=== PATIENT | female | born 1940 | race Two or more races ===

== ENCOUNTER → 2021-11-29 | Outpatient (CLI) | payer OTHER ==
[2021-11-29 09:36] LABS: Basophils # (auto) 0 10 ^3/uL (0-0.2); Basophils % (auto) 0.5 % (0.0-2.0); Eosinophils # (auto) 0.2 10 ^3/uL (0-0.8); Eosinophils % (auto) 2.2 % (0.0-7.0); Hematocrit 38.4 % (36.0-46.0); Hemoglobin 12.4 g/dL (12.2-16.2); Lymphocytes # (auto) 2.7 10 ^3/uL (0.4-5.4); Lymphocytes % (auto) 33.8 % (10.0-50.0); Mean Corpuscular Hemoglobin 29.3 pg (28.0-32.0); Mean Corpuscular Hgb Conc. 32.3 g/dL (32.0-36.0); Mean Corpuscular Volume 90.5 fL (80.0-100.0); Monocytes # (auto) 0.9 10 ^3/uL (0-1.3); Monocytes % (auto) 11.5 % (0.0-12.0); Neutrophils # (auto) 4.1 10 ^3/uL (1.6-8.6); Red Blood Cells 4.25 10^6/uL (4.0-5.20); Red Cell Distribution Width 13.5 % (11.8-14.3)
[2021-11-29 10:25] LABS: Potassium 4.7 mmol/L (3.5-5.1)
[2021-11-29 10:33] LABS: Albumin 3.7 g/dL (3.4-5.0); BUN/Creatinine Ratio 17.1; Bilirubin, Total 0.3 mg/dL (0.2-1.0); Calcium 9.2 mg/dL (8.5-10.1); Total Protein 7.2 g/dL (6.4-8.2)
== END | disposition home or self-care (01) ==
LOC: LAB 09:19
PROVIDERS: ATTEND Internal Medicine
DX: Z12.11 Encounter for screening for malignant neoplasm of colon (principal); E78.5 Hyperlipidemia, unspecified; I10 Essential (primary) hypertension; E55.9 Vitamin D deficiency, unspecified
CPT/HCPCS: 36415; 80053; 80061; 82306; 84439; 84443; 85025

== ENCOUNTER → 2022-02-24 | Outpatient (CLI) | payer OTHER ==
[2022-02-24 15:28] LABS: Albumin 3.7 g/dL (3.4-5.0); BUN/Creatinine Ratio 17.7; Bilirubin, Total 0.3 mg/dL (0.2-1.0); Magnesium 2.5 mg/dL (1.6-2.6); Phosphorus 3.5 mg/dL (2.5-4.90); Potassium 4.3 mmol/L (3.5-5.1); Total Protein 7.3 g/dL (6.4-8.2); Uric Acid 6.3 mg/dL (2.6-6.0)
[2022-02-25 16:21] LABS: Free T3 3.07 pg/mL (2.3-4.2); Free T4 (Free Thyroxine) 0.89 ng/dL (0.89-1.76)
== END | disposition home or self-care (01) ==
LOC: LAB 13:59
PROVIDERS: ATTEND Internal Medicine
DX: E11.22 Type 2 diabetes mellitus with diabetic chronic kidney disease (principal); N18.32 Chronic kidney disease, stage 3b; E21.3 Hyperparathyroidism, unspecified; E03.9 Hypothyroidism, unspecified; D63.1 Anemia in chronic kidney disease; M10.9 Gout, unspecified; E56.9 Vitamin deficiency, unspecified; R80.9 Proteinuria, unspecified; E61.2 Magnesium deficiency; E43 Unspecified severe protein-calorie malnutrition
CPT/HCPCS: 36415; 80053; 82306; 83735; 83970; 84100; 84439; 84443; 84481; 84550

== ENCOUNTER → 2022-06-09 | Outpatient (CLI) | payer OTHER ==
[2022-06-09 14:23] LABS: Basophils # (auto) 0 10 ^3/uL (0-0.2); Basophils % (auto) 0.6 % (0.0-2.0); Eosinophils # (auto) 0.2 10 ^3/uL (0-0.8); Eosinophils % (auto) 3.1 % (0.0-7.0); Hematocrit 37.6 % (36.0-46.0); Hemoglobin 12.5 g/dL (12.2-16.2); Lymphocytes # (auto) 2.2 10 ^3/uL (0.4-5.4); Mean Corpuscular Hemoglobin 29.6 pg (28.0-32.0); Mean Corpuscular Hgb Conc. 33.4 g/dL (32.0-36.0); Mean Corpuscular Volume 88.8 fL (80.0-100.0); Monocytes # (auto) 0.6 10 ^3/uL (0-1.3); Monocytes % (auto) 9.9 % (0.0-12.0); Neutrophils # (auto) 2.9 10 ^3/uL (1.6-8.6); Neutrophils % (auto) 49.4 % (37.0-80.0); Nucleated Red Blood Cells % 0.1 %; Red Blood Cells 4.23 10^6/uL (4.0-5.20); Red Cell Distribution Width 13.6 % (11.8-14.3); White Blood Cell 5.9 10^3/uL (4.4-10.8)
[2022-06-09 14:43] LABS: Albumin 3.9 g/dL (3.4-5.0); Calcium 8.9 mg/dL (8.5-10.1); Magnesium 2.3 mg/dL (1.6-2.6); Potassium 4.4 mmol/L (3.5-5.1); Uric Acid 6.4 mg/dL (2.6-6.0)
[2022-06-09 14:48] LABS: BUN/Creatinine Ratio 12.3; Bilirubin, Total 0.3 mg/dL (0.2-1.0); Phosphorus 3.9 mg/dL (2.5-4.90); Total Protein 7.5 g/dL (6.4-8.2)
[2022-06-09 15:53] LABS: Protein, Urine 25.3 mg/dL (0.0-11.9)
== END | disposition home or self-care (01) ==
LOC: LAB 14:00
PROVIDERS: ATTEND Internal Medicine Nephrology
DX: N18.31 Chronic kidney disease, stage 3a (principal); E61.2 Magnesium deficiency; E21.3 Hyperparathyroidism, unspecified; R80.9 Proteinuria, unspecified; D63.1 Anemia in chronic kidney disease
CPT/HCPCS: 36415; 80053; 82570; 83735; 83970; 84100; 84156; 84550; 85025

== ENCOUNTER → 2022-07-14 | Outpatient (CLI) | payer OTHER | END | disposition home or self-care (01) | LOC: XYW 13:45 | PROVIDERS: ATTEND Internal Medicine | DX: I08.0 Rheumatic disorders of both mitral and aortic valves (principal); I25.810 Atherosclerosis of coronary artery bypass graft(s) without angina pectoris | CPT/HCPCS: 93306 ==

== ENCOUNTER → 2022-07-22 | Outpatient (CLI) | payer OTHER ==
[~2022-07-22] VITALS: Ht 147.3 cm; Wt 48.1 kg
[~2022-07-22] MED LIST: ADENOSINE 40 MG in GIVE UN-DILUTED 0 ML IV STA
[2022-07-22 10:49] VITALS: BP 144/100
== END | disposition home or self-care (01) ==
LOC: XYW 07:55
PROVIDERS: ATTEND Internal Medicine
DX: I25.810 Atherosclerosis of coronary artery bypass graft(s) without angina pectoris (principal); R00.2 Palpitations; I73.9 Peripheral vascular disease, unspecified; I35.0 Nonrheumatic aortic (valve) stenosis; I10 Essential (primary) hypertension; E78.5 Hyperlipidemia, unspecified; R09.89 Other specified symptoms and signs involving the circulatory and respiratory systems; Z95.2 Presence of prosthetic heart valve
CPT/HCPCS: 78452; 93017; A9500; J0153

== ENCOUNTER → 2022-07-28 | Outpatient (CLI) | payer OTHER | END | disposition home or self-care (01) | LOC: XYW 08:07 | PROVIDERS: ATTEND Internal Medicine | DX: I65.23 Occlusion and stenosis of bilateral carotid arteries (principal); I73.9 Peripheral vascular disease, unspecified | CPT/HCPCS: 93886; 93925 ==

== ENCOUNTER → 2022-09-01 | Outpatient (CLI) | payer OTHER ==
[2022-09-01 13:44] LABS: Albumin 3.5 g/dL (3.4-5.0); Calcium 8.7 mg/dL (8.5-10.1); Magnesium 2.8 mg/dL (1.6-2.6); Potassium 4.5 mmol/L (3.5-5.1); Uric Acid 6.1 mg/dL (2.6-6.0)
[2022-09-01 13:47] LABS: BUN/Creatinine Ratio 18.9 (10.0-20.0); Bilirubin, Total 0.3 mg/dL (0.2-1.0); Total Protein 7.8 g/dL (6.4-8.2)
[2022-09-01 14:11] LABS: INR 0.94 (0.9-1.15); Partial Thromboplastin Time 25.9 sec (24.6-33.4)
[2022-09-01 14:27] LABS: Urine Bacteria FEW /hpf (None Seen); Urine Blood Negative /uL (Negative); Urine Hyaline Cast MANY /lpf (0 - 2); Urine Specific Gravity 1.012 (1.001-1.035); Urine WBC 3 /hpf (0 - 5)
== END | disposition home or self-care (01) ==
LOC: LAB 13:05
PROVIDERS: ATTEND Internal Medicine Nephrology
DX: N18.30 Chronic kidney disease, stage 3 unspecified (principal); E11.21 Type 2 diabetes mellitus with diabetic nephropathy; D63.1 Anemia in chronic kidney disease; N39.0 Urinary tract infection, site not specified; R80.9 Proteinuria, unspecified; E21.3 Hyperparathyroidism, unspecified; M10.9 Gout, unspecified; E55.9 Vitamin D deficiency, unspecified
CPT/HCPCS: 36415; 80053; 81001; 82607; 83036; 83735; 84550; 85610; 85730

== ENCOUNTER → 2022-12-01 | Outpatient (CLI) | payer OTHER ==
[2022-12-01 11:29] LABS: Basophils # (auto) 0 10 ^3/uL (0-0.2); Basophils % (auto) 0.8 % (0.0-2.0); Eosinophils # (auto) 0.2 10 ^3/uL (0-0.8); Eosinophils % (auto) 3.7 % (0.0-7.0); Hemoglobin 12.2 g/dL (12.2-16.2); Lymphocytes # (auto) 2.6 10 ^3/uL (0.4-5.4); Lymphocytes % (auto) 42.7 % (10.0-50.0); Mean Corpuscular Hemoglobin 30.1 pg (28.0-32.0); Mean Corpuscular Volume 91.3 fL (80.0-100.0); Monocytes # (auto) 0.6 10 ^3/uL (0-1.3); Monocytes % (auto) 10.7 % (0.0-12.0); Neutrophils # (auto) 2.5 10 ^3/uL (1.6-8.6); Neutrophils % (auto) 42.1 % (37.0-80.0); Nucleated Red Blood Cells % 0.1 %; Red Blood Cells 4.06 10^6/uL (4.0-5.20); Red Cell Distribution Width 14.9 % (11.8-14.3)
[2022-12-01 13:44] LABS: Potassium 4.5 mmol/L (3.5-5.1)
[2022-12-01 13:51] LABS: Albumin 3.9 g/dL (3.4-5.0); BUN/Creatinine Ratio 22.1 (10.0-20.0); Bilirubin, Total 0.2 mg/dL (0.2-1.0); Calcium 8.9 mg/dL (8.5-10.1); Magnesium 2.6 mg/dL (1.6-2.6); Total Protein 7.6 g/dL (6.4-8.2)
[2022-12-01 14:35] LABS: Protein, Urine 11.2 mg/dL (0.0-11.9); Urine Protein/Creatinine Ratio 0.21
[2022-12-01 16:11] LABS: Uric Acid 6.6 mg/dL (2.6-6.0)
== END | disposition home or self-care (01) ==
LOC: LAB 11:08
PROVIDERS: ATTEND Internal Medicine Nephrology
DX: N18.31 Chronic kidney disease, stage 3a (principal); E61.2 Magnesium deficiency; E21.3 Hyperparathyroidism, unspecified; R80.9 Proteinuria, unspecified; R10.9 Unspecified abdominal pain
CPT/HCPCS: 36415; 80053; 82570; 83735; 83970; 84156; 84550; 85025

== ENCOUNTER 2022-12-31 07:19 | Inpatient (IN) | payer OTHER ==
[2022-12-30 13:52] LABS: Basophils # (auto) 0 10 ^3/uL (0-0.2); Basophils % (auto) 0.7 % (0.0-2.0); Eosinophils # (auto) 0.3 10 ^3/uL (0-0.8); Eosinophils % (auto) 4.9 % (0.0-7.0); Hematocrit 34.9 % (36.0-46.0); Hemoglobin 11.6 g/dL (12.2-16.2); Lymphocytes # (auto) 2.4 10 ^3/uL (0.4-5.4); Lymphocytes % (auto) 43.9 % (10.0-50.0); Mean Corpuscular Hemoglobin 30.6 pg (28.0-32.0); Mean Corpuscular Hgb Conc. 33.1 g/dL (32.0-36.0); Mean Corpuscular Volume 92.2 fL (80.0-100.0); Monocytes # (auto) 0.7 10 ^3/uL (0-1.3); Monocytes % (auto) 11.9 % (0.0-12.0); Neutrophils # (auto) 2.1 10 ^3/uL (1.6-8.6); Neutrophils % (auto) 38.6 % (37.0-80.0); Nucleated Red Blood Cells % 0.1 %; Red Blood Cells 3.78 10^6/uL (4.0-5.20); Red Cell Distribution Width 13.9 % (11.8-14.3); White Blood Cell 5.5 10^3/uL (4.4-10.8)
[2022-12-30 13:55] LABS: Partial Thromboplastin Time 25.8 SEC (24.5-34.5); Prothrombin Time 10.5 sec (9.3-11.8)
[2022-12-30 14:32] LABS: Alanine Aminotransferase 47 U/L (7-40); Albumin 4.3 g/dL (3.2-4.8); Alkaline Phosphatase 49 U/L (46-116); Anion Gap 3.5 (5-15); Aspartate Aminotransferase 32 U/L (13-40); BUN/Creatinine Ratio 16.7 (10.0-20.0); Blood Urea Nitrogen 21 mg/dL (9-23); Calcium 9.2 mg/dL (8.5-10.1); Carbon Dioxide 28.5 mmol/L (20-30); Chloride 107 mmol/L (98-107); Glucose 82 mg/dL (74-106); Potassium 4.8 mmol/L (3.5-5.1); Sodium 139 mmol/L (136-145)
[2022-12-30 14:33] LABS: Bilirubin, Total 0.3 mg/dL (0.2-1.0); Total Protein 7.1 g/dL (5.7-8.2)
[~2022-12-31] VITALS: Ht 154.9 cm; Wt 50.4 kg
[2022-12-31] VITALS (10 sets, daily range): BP systolic 111–158; BP diastolic 50–88; PULSE 64–84; RESP 10–18; TEMP 98–98.7; O2SAT 96–99
[~2022-12-31 07:19] MED LIST changes: -ADENOSINE 40 MG in GIVE UN-DILUTED 0 ML IV STA; +ASPI-543 PO; +CHOL20007 PO; +CLOP75TA70 PO; +LISI10TA34 PO; +MAGN250T22 PO; +MECL1TAB32 PO; +OXYB5TAB10 PO; +SIMV80TA17 PO
[2022-12-31] MEDS ORDERED: ANGIOMAX 250 MG VIAL IV ONE ×2 (09:58→11:59)
[2022-12-31] MEDS ORDERED: GLYCOPYRROLATE 0.2 MG/ML 1ML VIAL ONE (09:58)
[2022-12-31] MEDS ORDERED: SODIUM CHL 0.9% 50 ML ONE ×2 (09:59→11:59)
[2022-12-31] MEDS ORDERED: IODIXANOL 320MG/ML 100ML BTL IV ONE ×3 (09:59→11:43)
[2022-12-31] MEDS ORDERED: DOPamine 1600MCG/ML D5W 0 ML IV ONE (10:00)
[2022-12-31] MEDS ORDERED: EPINEPHrine HCL 1 MG/10 ML SYRG ONE (10:00)
[2022-12-31] MEDS ORDERED: ATROPINE SULF 1 MG/10ml SYR ONE (10:00)
[2022-12-31] MEDS ORDERED: LIDOCAINE 2%HCL (LOCAL ANESTH.) INJ 20ML MDV ONE (10:23)
[2022-12-31] MEDS ORDERED: hydrALAZINE HCL 20 MG/ML VL ONE (10:59)
[2022-12-31] MEDS ORDERED: ACETAMINOPHEN 325 MG TAB PO PRN (15:45)
[2022-12-31] MEDS ORDERED: ATORVASTATIN 20 MG TAB PO SCH (22:00)
[2023-01-01 05:00] VITALS: BP 135/55; PULSE 64; RESP 16; TEMP 99.1; O2SAT 99
[2023-01-01 08:00] VITALS: PULSE 64; RESP 16
[2023-01-01 08:42] LABS: Basophils # (auto) 0 10 ^3/uL (0-0.2); Basophils % (auto) 0.5 % (0.0-2.0); Eosinophils # (auto) 0.2 10 ^3/uL (0-0.8); Eosinophils % (auto) 2.8 % (0.0-7.0); Hematocrit 36.1 % (36.0-46.0); Hemoglobin 11.9 g/dL (12.2-16.2); Lymphocytes # (auto) 2.3 10 ^3/uL (0.4-5.4); Lymphocytes % (auto) 28.1 % (10.0-50.0); Mean Corpuscular Hgb Conc. 32.9 g/dL (32.0-36.0); Mean Corpuscular Volume 94.1 fL (80.0-100.0); Monocytes # (auto) 0.8 10 ^3/uL (0-1.3); Monocytes % (auto) 10.3 % (0.0-12.0); Neutrophils # (auto) 4.7 10 ^3/uL (1.6-8.6); Neutrophils % (auto) 58.3 % (37.0-80.0); Red Blood Cells 3.84 10^6/uL (4.0-5.20); Red Cell Distribution Width 13.8 % (11.8-14.3); White Blood Cell 8.1 10^3/uL (4.4-10.8)
[2023-01-01 08:59] LABS: Anion Gap 6 (5-15); Calcium 9.3 mg/dL (8.5-10.1); Carbon Dioxide 25 mmol/L (20-30); Chloride 107 mmol/L (98-107); Potassium 4.5 mmol/L (3.5-5.1); Sodium 138 mmol/L (136-145)
[2023-01-01 09:00] VITALS: BP 122/69; PULSE 71; RESP 19; TEMP 98.3; O2SAT 99
[2023-01-01 09:05] LABS: Glucose 105 mg/dL (74-106)
[2023-01-01 09:06] LABS: BUN/Creatinine Ratio 12.6 (10.0-20.0); Blood Urea Nitrogen 15 mg/dL (9-23)
[2023-01-01] MEDS ORDERED: ASPirin 81 mg TAB PO SCH (10:00)
[2023-01-01] MEDS ORDERED: CLOPIDOGREL BISULFATE 75 MG TAB PO SCH (10:00)
[2023-01-01] MEDS ORDERED: MAGNESIUM OXIDE 400 MG TAB PO SCH (10:00)
[2023-01-01 13:00] VITALS: BP 139/69; PULSE 78; RESP 19; TEMP 98.4; O2SAT 99
[2023-01-01 15:03] VITALS: TEMP 37.3
== END 2023-01-01 17:58 | disposition home or self-care (01) | DRG 36 ==
LOC: CATH 07:19 → TELE 12:01 → TELE-WESTW 15:40
PROVIDERS: ADMIT Internal Medicine; ATTEND Internal Medicine
PROC: 037J3DZ Dilation of Left Common Carotid Artery with Intraluminal Device, Percutaneous Approach (ICD-10-PCS; principal; 2022-12-31)
PROC: 037J3DZ Dilation of Left Common Carotid Artery with Intraluminal Device, Percutaneous Approach (ICD-10-PCS; 2022-12-31)
PROC: B315YZZ Fluoroscopy of Bilateral Common Carotid Arteries using Other Contrast (ICD-10-PCS; 2022-12-31)
DX: I65.22 Occlusion and stenosis of left carotid artery (principal); E78.5 Hyperlipidemia, unspecified; I10 Essential (primary) hypertension; I25.10 Atherosclerotic heart disease of native coronary artery without angina pectoris; Z79.02 Long term (current) use of antithrombotics/antiplatelets; Z79.82 Long term (current) use of aspirin; Z95.1 Presence of aortocoronary bypass graft; Z87.891 Personal history of nicotine dependence
CPT/HCPCS: 36415; 80048; 80053; 83735; 85025; 85610; 85730; 97163; 99152; G0378; Q9967

== ENCOUNTER → 2023-01-29 | Outpatient (CLI) | payer OTHER | END | disposition home or self-care (01) | LOC: XYW 08:47 | PROVIDERS: ATTEND Student in an Organized Health Care Education/Training Program | DX: I70.203 Unspecified atherosclerosis of native arteries of extremities, bilateral legs (principal) | CPT/HCPCS: 93925 ==

== ENCOUNTER → 2023-01-29 | Outpatient (CLI) | payer OTHER ==
[2023-01-29 13:43] LABS: Basophils # (auto) 0 10 ^3/uL (0-0.2); Basophils % (auto) 0.5 % (0.0-2.0); Eosinophils # (auto) 0.3 10 ^3/uL (0-0.8); Eosinophils % (auto) 4.3 % (0.0-7.0); Hematocrit 38.6 % (36.0-46.0); Hemoglobin 12.8 g/dL (12.2-16.2); Lymphocytes # (auto) 3.1 10 ^3/uL (0.4-5.4); Lymphocytes % (auto) 40.8 % (10.0-50.0); Mean Corpuscular Hemoglobin 30.9 pg (28.0-32.0); Mean Corpuscular Hgb Conc. 33.1 g/dL (32.0-36.0); Mean Corpuscular Volume 93.5 fL (80.0-100.0); Monocytes # (auto) 0.7 10 ^3/uL (0-1.3); Monocytes % (auto) 9.1 % (0.0-12.0); Neutrophils # (auto) 3.5 10 ^3/uL (1.6-8.6); Neutrophils % (auto) 45.3 % (37.0-80.0); Red Blood Cells 4.13 10^6/uL (4.0-5.20); Red Cell Distribution Width 13.2 % (11.8-14.3); White Blood Cell 7.6 10^3/uL (4.4-10.8)
[2023-01-29 14:02] LABS: Alanine Aminotransferase 38 U/L (7-40); Albumin 4.8 g/dL (3.2-4.8); Alkaline Phosphatase 61 U/L (46-116); Anion Gap 6 (5-15); Aspartate Aminotransferase 33 U/L (13-40); BUN/Creatinine Ratio 15.3 (10.0-20.0); Blood Urea Nitrogen 19 mg/dL (9-23); Calcium 9.8 mg/dL (8.5-10.1); Carbon Dioxide 28 mmol/L (20-30); Chloride 104 mmol/L (98-107); Cholesterol 154 mg/dL (< 200); Glucose 99 mg/dL (74-106); LDL Cholesterol 71 mg/dL (< 100); Potassium 4.4 mmol/L (3.5-5.1); Sodium 138 mmol/L (136-145); Triglycerides 155 mg/dL (< 150)
[2023-01-29 14:03] LABS: HDL Cholesterol 58 mg/dL (40-59)
[2023-01-29 14:04] LABS: Bilirubin, Total 0.3 mg/dL (0.2-1.0); Total Protein 8.2 g/dL (5.7-8.2)
[2023-01-29 15:06] LABS: Magnesium 2.2 mg/dL (1.6-2.6)
== END | disposition home or self-care (01) ==
LOC: LAB 13:30
PROVIDERS: ATTEND Internal Medicine
DX: Z00.01 Encounter for general adult medical examination with abnormal findings (principal)
CPT/HCPCS: 36415; 80053; 80061; 82306; 83735; 85025

== ENCOUNTER → 2023-07-01 | Outpatient (CLI) | payer OTHER ==
[2023-07-01 15:58] LABS: Alanine Aminotransferase 19 U/L (7-40); Albumin 4.5 g/dL (3.2-4.8); Alkaline Phosphatase 66 U/L (46-116); Anion Gap 7 (5-15); Aspartate Aminotransferase 25 U/L (13-40); BUN/Creatinine Ratio 13.7 (10.0-20.0); Bilirubin, Total 0.3 mg/dL (0.2-1.0); Blood Urea Nitrogen 16 mg/dL (9-23); Calcium 10.2 mg/dL (8.7-10.4); Carbon Dioxide 29 mmol/L (20-30); Chloride 105 mmol/L (98-107); Glucose 89 mg/dL (74-106); Magnesium 2.1 mg/dL (1.6-2.6); Phosphorus 3.7 mg/dL (2.4-5.1); Potassium 4.6 mmol/L (3.5-5.1); Sodium 141 mmol/L (136-145); Total Protein 7.5 g/dL (5.7-8.2)
[2023-07-01 16:11] LABS: Creatinine, Urine 96.68 mg/dL (30.0-125.0)
== END | disposition home or self-care (01) ==
LOC: LAB 15:19
PROVIDERS: ATTEND Internal Medicine Nephrology
DX: N18.31 Chronic kidney disease, stage 3a (principal); R80.9 Proteinuria, unspecified; E21.3 Hyperparathyroidism, unspecified; M10.9 Gout, unspecified
CPT/HCPCS: 36415; 80053; 82043; 82570; 83735; 83970; 84100; 84156; 84550

== ENCOUNTER → 2023-10-13 | Outpatient (CLI) | payer OTHER ==
[~2023-10-13] MED LIST changes: +MECL-90 PO; -MECL1TAB32 PO; -OXYB5TAB10 PO; +OXYB5TAB14 PO
[2023-10-13 15:32] LABS: Alanine Aminotransferase 16 U/L (7-40); Albumin 4.4 g/dL (3.2-4.8); Alkaline Phosphatase 48 U/L (46-116); Anion Gap 6 (5-15); Aspartate Aminotransferase 17 U/L (13-40); BUN/Creatinine Ratio 19.6 (10.0-20.0); Bilirubin, Total 0.3 mg/dL (0.2-1.0); Blood Urea Nitrogen 33 mg/dL (9-23); Calcium 10.1 mg/dL (8.7-10.4); Carbon Dioxide 28 mmol/L (20-30); Chloride 107 mmol/L (98-107); Glucose 123 mg/dL (74-106); Magnesium 2.1 mg/dL (1.6-2.6); Phosphorus 3.6 mg/dL (2.4-5.1); Potassium 4.1 mmol/L (3.5-5.1); Sodium 141 mmol/L (136-145); Total Protein 7.3 g/dL (5.7-8.2); Uric Acid 7.6 mg/dL (3.1-7.8)
== END | disposition home or self-care (01) ==
LOC: LAB 14:45
DX: E11.21 Type 2 diabetes mellitus with diabetic nephropathy (principal); E11.22 Type 2 diabetes mellitus with diabetic chronic kidney disease; D63.1 Anemia in chronic kidney disease; N18.30 Chronic kidney disease, stage 3 unspecified; N39.0 Urinary tract infection, site not specified; R80.9 Proteinuria, unspecified; E21.3 Hyperparathyroidism, unspecified; M10.9 Gout, unspecified; E55.9 Vitamin D deficiency, unspecified
CPT/HCPCS: 36415; 80053; 83735; 83970; 84100; 84550

== ENCOUNTER → 2024-01-06 | Outpatient (CLI) | payer OTHER ==
[2024-01-06 15:24] LABS: Basophils # (auto) 0 10 ^3/uL (0-0.2); Basophils % (auto) 0.8 % (0.0-2.0); Eosinophils # (auto) 0.3 10 ^3/uL (0-0.8); Eosinophils % (auto) 5.1 % (0.0-7.0); Hemoglobin 12.6 g/dL (12.2-16.2); Lymphocytes # (auto) 2.1 10 ^3/uL (0.4-5.4); Lymphocytes % (auto) 34.1 % (10.0-50.0); Mean Corpuscular Hemoglobin 32.5 pg (28.0-32.0); Mean Corpuscular Hgb Conc. 34.2 g/dL (32.0-36.0); Monocytes # (auto) 0.6 10 ^3/uL (0-1.3); Monocytes % (auto) 9.2 % (0.0-12.0); Neutrophils # (auto) 3.2 10 ^3/uL (1.6-8.6); Neutrophils % (auto) 50.8 % (37.0-80.0); Nucleated Red Blood Cells % 0.1 %; Platelet Count (auto) 205 10^3/uL (140-450); Red Blood Cells 3.89 10^6/uL (4.0-5.20); Red Cell Distribution Width 12.8 % (11.8-14.3); White Blood Cell 6.2 10^3/uL (4.4-10.8)
[2024-01-06 15:58] LABS: Alanine Aminotransferase 25 U/L (7-40); Albumin 4.6 g/dL (3.2-4.8); Alkaline Phosphatase 54 U/L (46-116); Anion Gap 6 (5-15); Aspartate Aminotransferase 22 U/L (13-40); Bilirubin, Total 0.3 mg/dL (0.2-1.0); Blood Urea Nitrogen 21 mg/dL (9-23); Carbon Dioxide 27 mmol/L (20-30); Chloride 107 mmol/L (98-107); Cholesterol 159 mg/dL (< 200); Glucose 82 mg/dL (74-106); HDL Cholesterol 52 mg/dL (40-59); LDL Cholesterol 79 mg/dL (< 100); Potassium 4.5 mmol/L (3.5-5.1); Sodium 140 mmol/L (136-145); Total Protein 7.5 g/dL (5.7-8.2); Triglycerides 138 mg/dL (< 150)
== END | disposition home or self-care (01) ==
LOC: LAB 14:44
PROVIDERS: ATTEND Internal Medicine
DX: I12.9 Hypertensive chronic kidney disease with stage 1 through stage 4 chronic kidney disease, or unspecified chronic kidney disease (principal); N18.32 Chronic kidney disease, stage 3b; Z00.01 Encounter for general adult medical examination with abnormal findings; I73.9 Peripheral vascular disease, unspecified; E55.9 Vitamin D deficiency, unspecified
CPT/HCPCS: 36415; 80053; 80061; 82306; 83036; 84439; 84443; 85025

== ENCOUNTER → 2024-02-10 | Outpatient (CLI) | payer OTHER ==
[2024-02-10 14:25] LABS: Basophils # (auto) 0 10 ^3/uL (0-0.2); Basophils % (auto) 0.5 % (0.0-2.0); Eosinophils # (auto) 0.2 10 ^3/uL (0-0.8); Eosinophils % (auto) 3.4 % (0.0-7.0); Hematocrit 37.4 % (36.0-46.0); Hemoglobin 12.7 g/dL (12.2-16.2); Lymphocytes # (auto) 2.1 10 ^3/uL (0.4-5.4); Lymphocytes % (auto) 34.6 % (10.0-50.0); Mean Corpuscular Hemoglobin 32.4 pg (28.0-32.0); Mean Corpuscular Volume 95.4 fL (80.0-100.0); Monocytes # (auto) 0.5 10 ^3/uL (0-1.3); Monocytes % (auto) 8.5 % (0.0-12.0); Neutrophils # (auto) 3.2 10 ^3/uL (1.6-8.6); Nucleated Red Blood Cells % 0.1 %; Platelet Count (auto) 181 10^3/uL (140-450); Red Blood Cells 3.92 10^6/uL (4.0-5.20); Red Cell Distribution Width 12.5 % (11.8-14.3); White Blood Cell 6.1 10^3/uL (4.4-10.8)
[2024-02-10 14:56] LABS: Creatinine, Urine 189.18 mg/dL (30.0-125.0)
[2024-02-10 14:59] LABS: Alanine Aminotransferase 27 U/L (7-40); Albumin 4.5 g/dL (3.2-4.8); Alkaline Phosphatase 53 U/L (46-116); Anion Gap 5 (5-15); Aspartate Aminotransferase 23 U/L (13-40); BUN/Creatinine Ratio 16.3 (10.0-20.0); Bilirubin, Total 0.3 mg/dL (0.2-1.0); Blood Urea Nitrogen 20 mg/dL (9-23); Calcium 9.5 mg/dL (8.7-10.4); Carbon Dioxide 27 mmol/L (20-31); Chloride 108 mmol/L (98-107); Glucose 101 mg/dL (74-106); Magnesium 2.1 mg/dL (1.6-2.6); Phosphorus 3.8 mg/dL (2.4-5.1); Potassium 4.3 mmol/L (3.5-5.1); Sodium 140 mmol/L (136-145); Total Protein 7.3 g/dL (5.7-8.2); Uric Acid 6.9 mg/dL (3.1-7.8)
== END | disposition home or self-care (01) ==
LOC: LAB 13:56
PROVIDERS: ATTEND Internal Medicine Nephrology
DX: E11.21 Type 2 diabetes mellitus with diabetic nephropathy (principal); N18.30 Chronic kidney disease, stage 3 unspecified; D63.1 Anemia in chronic kidney disease; N39.0 Urinary tract infection, site not specified; R80.9 Proteinuria, unspecified; E21.3 Hyperparathyroidism, unspecified; M10.9 Gout, unspecified; E55.9 Vitamin D deficiency, unspecified
CPT/HCPCS: 36415; 80053; 82043; 82570; 83735; 83970; 84100; 84550; 85025

== ENCOUNTER → 2024-05-20 | Outpatient (CLI) | payer OTHER ==
[2024-05-20 14:41] LABS: Basophils # (auto) 0 10 ^3/uL (0-0.2); Basophils % (auto) 0.7 % (0.0-2.0); Eosinophils # (auto) 0.2 10 ^3/uL (0-0.8); Eosinophils % (auto) 3.8 % (0.0-7.0); Hematocrit 39.9 % (36.0-46.0); Lymphocytes # (auto) 1.8 10 ^3/uL (0.4-5.4); Lymphocytes % (auto) 39.4 % (10.0-50.0); Mean Corpuscular Hemoglobin 30.3 pg (28.0-32.0); Mean Corpuscular Hgb Conc. 32.6 g/dL (32.0-36.0); Mean Corpuscular Volume 92.7 fL (80.0-100.0); Monocytes # (auto) 0.4 10 ^3/uL (0-1.3); Neutrophils # (auto) 2.2 10 ^3/uL (1.6-8.6); Neutrophils % (auto) 47.1 % (37.0-80.0); Platelet Count (auto) 170 10^3/uL (140-450); Red Cell Distribution Width 12.9 % (11.8-14.3); White Blood Cell 4.6 10^3/uL (4.4-10.8)
[2024-05-20 16:31] LABS: Alanine Aminotransferase 23 U/L (7-40); Albumin 4.4 g/dL (3.2-4.8); Alkaline Phosphatase 55 U/L (46-116); Anion Gap 7 (5-15); Aspartate Aminotransferase 28 U/L (13-40); BUN/Creatinine Ratio 11.7 (10.0-20.0); Blood Urea Nitrogen 15 mg/dL (9-23); Calcium 9.6 mg/dL (8.7-10.4); Carbon Dioxide 28 mmol/L (20-31); Chloride 106 mmol/L (98-107); Cholesterol 148 mg/dL (< 200); Glucose 97 mg/dL (74-106); LDL Cholesterol 71 mg/dL (< 100); Potassium 4.1 mmol/L (3.5-5.1); Sodium 141 mmol/L (136-145); Triglycerides 114 mg/dL (< 150)
[2024-05-20 16:37] LABS: Bilirubin, Total 0.3 mg/dL (0.2-1.0); HDL Cholesterol 62 mg/dL (40-59)
== END | disposition home or self-care (01) ==
LOC: LAB 14:15
PROVIDERS: ATTEND Internal Medicine
DX: Z00.01 Encounter for general adult medical examination with abnormal findings (principal); Z13.1 Encounter for screening for diabetes mellitus; I12.9 Hypertensive chronic kidney disease with stage 1 through stage 4 chronic kidney disease, or unspecified chronic kidney disease; N18.32 Chronic kidney disease, stage 3b; I25.10 Atherosclerotic heart disease of native coronary artery without angina pectoris; E78.5 Hyperlipidemia, unspecified; F10.21 Alcohol dependence, in remission
CPT/HCPCS: 36415; 80053; 80061; 83036; 84439; 84443; 85025

== ENCOUNTER → 2024-06-20 | Outpatient (CLI) | payer OTHER ==
[2024-06-20 16:18] LABS: Protein, Urine 25.6 mg/dL (1-14)
[2024-06-20 16:20] LABS: Creatinine, Urine 135.55 mg/dL (30.0-125.0); Urine Protein/Creatinine Ratio 0.19
[2024-06-20 16:24] LABS: Alanine Aminotransferase 17 U/L (7-40); Albumin 4.8 g/dL (3.2-4.8); Alkaline Phosphatase 57 U/L (46-116); Anion Gap 8 (5-15); Aspartate Aminotransferase 25 U/L (13-40); Bilirubin, Total 0.3 mg/dL (0.2-1.0); Blood Urea Nitrogen 16 mg/dL (9-23); Calcium 10.1 mg/dL (8.7-10.4); Carbon Dioxide 27 mmol/L (20-31); Chloride 105 mmol/L (98-107); Glucose 83 mg/dL (74-106); Magnesium 2.1 mg/dL (1.6-2.6); Phosphorus 3.9 mg/dL (2.4-5.1); Potassium 4.4 mmol/L (3.5-5.1); Sodium 140 mmol/L (136-145); Total Protein 7.6 g/dL (5.7-8.2); Uric Acid 6.3 mg/dL (3.1-7.8)
== END | disposition home or self-care (01) ==
LOC: LAB 15:12
PROVIDERS: ATTEND Internal Medicine Nephrology
DX: E11.22 Type 2 diabetes mellitus with diabetic chronic kidney disease (principal); N18.30 Chronic kidney disease, stage 3 unspecified; E11.21 Type 2 diabetes mellitus with diabetic nephropathy; N39.0 Urinary tract infection, site not specified; E55.9 Vitamin D deficiency, unspecified; E21.3 Hyperparathyroidism, unspecified; M10.9 Gout, unspecified; R80.9 Proteinuria, unspecified; D63.1 Anemia in chronic kidney disease
CPT/HCPCS: 36415; 80053; 82570; 83735; 83970; 84100; 84156; 84550

== ENCOUNTER → 2024-10-18 | Outpatient (CLI) | payer OTHER ==
[2024-10-18 15:39] LABS: Hematocrit 41.6 % (36.0-46.0); Hemoglobin 13.8 g/dL (12.2-16.2); Mean Corpuscular Hemoglobin 30.6 pg (28.0-32.0); Mean Corpuscular Volume 92.2 fL (80.0-100.0); Nucleated Red Blood Cells % 0.0 %
[2024-10-18 16:01] LABS: Alanine Aminotransferase 17 U/L (7-40); Alkaline Phosphatase 56 U/L (46-116); Anion Gap 9 (5-15); BUN/Creatinine Ratio 12.4 (10.0-20.0); Blood Urea Nitrogen 20 mg/dL (9-23); Carbon Dioxide 27 mmol/L (20-31); Chloride 107 mmol/L (98-107); Glucose 92 mg/dL (74-106); Magnesium 2.4 mg/dL (1.6-2.6); Potassium 4.5 mmol/L (3.5-5.1); Sodium 143 mmol/L (136-145); Total Protein 7.7 g/dL (5.7-8.2)
[2024-10-18 16:02] LABS: Albumin 4.8 g/dL (3.2-4.8); Bilirubin, Total 0.4 mg/dL (0.2-1.0); Calcium 10.6 mg/dL (8.7-10.4)
[2024-10-18 16:48] LABS: Uric Acid 6.9 mg/dL (3.1-7.8)
== END | disposition home or self-care (01) ==
LOC: LAB 15:08
PROVIDERS: ATTEND Internal Medicine Nephrology
DX: E11.22 Type 2 diabetes mellitus with diabetic chronic kidney disease (principal); E11.21 Type 2 diabetes mellitus with diabetic nephropathy; N18.30 Chronic kidney disease, stage 3 unspecified; N39.0 Urinary tract infection, site not specified; E55.9 Vitamin D deficiency, unspecified; E21.3 Hyperparathyroidism, unspecified; D63.1 Anemia in chronic kidney disease; R80.9 Proteinuria, unspecified; M10.9 Gout, unspecified
CPT/HCPCS: 36415; 80053; 83735; 83970; 84100; 84550; 85025

== ENCOUNTER → 2024-10-27 | Outpatient (CLI) | payer OTHER ==
[2024-10-27 07:59] LABS: Microalb/Creat Ratio, Urine 3.0
== END | disposition home or self-care (01) ==
LOC: LAB 07:20
PROVIDERS: ATTEND Internal Medicine Nephrology
DX: E11.22 Type 2 diabetes mellitus with diabetic chronic kidney disease (principal); E11.21 Type 2 diabetes mellitus with diabetic nephropathy; N18.30 Chronic kidney disease, stage 3 unspecified; E21.3 Hyperparathyroidism, unspecified; E55.9 Vitamin D deficiency, unspecified; D63.1 Anemia in chronic kidney disease; N39.0 Urinary tract infection, site not specified; M10.9 Gout, unspecified; R80.9 Proteinuria, unspecified
CPT/HCPCS: 36415; 82043; 82570

== ENCOUNTER 2024-12-09 22:45 | Inpatient (IN) | payer OTHER ==
[~2024-12-09] VITALS: Ht 152.4 cm; Wt 48.0 kg
[2024-12-09] MEDS: SODIUM CHLORIDE 0.9% 1,000 ML IV ONE (01:55)
[~2024-12-09 22:45] MED LIST changes: +AMLO1TAB23 PO; +CHOL20003 PO; +HYDR50TA47 PO
[2024-12-09 23:43] LABS: Hematocrit 36.8 % (36.0-46.0); Hemoglobin 12.4 g/dL (12.2-16.2); Mean Corpuscular Hemoglobin 31.1 pg (28.0-32.0); Mean Corpuscular Volume 92.7 fL (80.0-100.0); Nucleated Red Blood Cells % 0.1 %
[2024-12-10] LABS: Albumin 4.4 g/dL (3.2-4.8); Alkaline Phosphatase 56 U/L (46-116); Anion Gap 11 (5-15); BUN/Creatinine Ratio 13.5 (10.0-20.0); Blood Urea Nitrogen 20 mg/dL (9-23); Calcium 8.8 mg/dL (8.7-10.4); Carbon Dioxide 23 mmol/L (20-31); Chloride 104 mmol/L (98-107); Magnesium 2.0 mg/dL (1.6-2.6); Sodium 138 mmol/L (136-145); Total Protein 7.1 g/dL (5.7-8.2)
[2024-12-10 00:01] LABS: Bilirubin, Total 0.3 mg/dL (0.2-1.0)
--- NOTE | 2024-12-10 00:04 | DVH ---
INDICATION: weak, SOB TECHNIQUE: Frontal view of the chest. COMPARISON: None FINDINGS/IMPRESSION: The lungs are clear. The cardiomediastinal silhouette is unremarkable. No pleural effusion or pneumo thorax. No acute osseous abnormality. Median sternotomy changes are noted.
[2024-12-10 00:07] LABS: Alanine Aminotransferase 55 U/L (7-40); Creatine Kinase IFCC 358 U/L (34-145); Glucose 152 mg/dL (74-106); Potassium 3.4 mmol/L (3.5-5.1)
--- NOTE | 2024-12-10 00:08 | DVH ---
EXAM: CT HEAD WITHOUT CONTRAST INDICATION: weak, head injury TECHNIQUE: CT of the head without intravenous contrast. Radiation dose : Head: CT Dose: CTDI volume is 51.97 mGy. Dose-length product is 1024.32 mGy*cm The dose indicators for CT are the volume computed tomography (CT) dose index (CTDIvol) and the dose length product (DLP), and are measured in units of mGy and mGy-cm, respectively. These indicators are not patient dose, but values generated from the CT scanner acquisition factors. The report includes radiation exposure data for exposures received during this examination. COMPARISON: None FINDINGS: Motion artifact degrades fine detail. No acute territorial infarct, intracranial hemorrhage, or mass effect. There are global involutional changes with compensatory prominence of the ventricles and sulci. Patchy periventricular and subcorti milly white matter hypoattenuation is nonspecific but may be related to small vessel ischemic disease. Bilateral lens implants. The paranasal sinuses and mastoid air cells are clear. The osseous structur es are unremarkable. IMPRESSION: 1. No acute territorial infarct, intracranial hemorrhage, or mass effect. 2. Age-related involutional changes. Chronic microvascular changes. Radiation optimization: All CT scans at this facility use at least one of these dose optimization steph hniques: Automated exposure control mA and/or kV adjustment per patient size (includes targeted exams where dose is matched to clinical indication) or iterative reconstruction. HS:Y
--- NOTE | 2024-12-10 00:48 | ED.PDOC ---
History of Present Illness HPI Comments HPI: Initial Vitals BP: 142/61 HR: 96 RR: 16 O2: 94% Temp: Past Medical History: Hypertension, dyslipidemia Past Surgical History: Social History: Denies ETOH, smoking, and drug use. Medications: Allergies: Papps: HPI: Poor Historian. 84-year-old female brought in by his sister for evaluation of generalized weakness. Patient had a mechanical slip and fall where patient slipped off the bed without any head or neck injury or loss of consciousness. Patient has been weak since then. Patient denies any pain anywhere in her body. Patient is typ ically ambulatory but has not been walking as much due to weakness. Patient is hard of hearing. History obtained from both the patient and the sister. No other acute complaints. Contrary to what the triage notes that is about heat exposure, family and patient denied any heat exposure. REVIEW OF SYSTEMS: CONSTITUTIONAL: Denies acute: fever, diaphoresis, chills, HEAD: Denies acute: headache, photophobia Eyes: Denies acute: Double vision, vision loss, eye pain, eye discharge. EARS: Denies acute: tinnitus, hearing loss, ear discharge, ear pain, THROAT: Denies acute: sore throat, swelling, difficulty swallowing , pain with swallowing, change in voice. NECK: Denies acute: neck pain, neck swelling, stiff neck. HEART: Denies acute : chest pain, palpitations, LUNGS: Denies acute: SOB, wheezing, cough, hemoptysis ABDOMEN: Denies acute: abdominal pain, Nausea, Vomiting, diarrhea, melena , hematemesis, hematochezia SKIN: Denies acute: rash, redness, lesions, itchiness. EXTREMITIES: Denies acute: calf pain, numbness, tingling, weakness, denies pain in extremity. Denies acute: Low back pain. Neuro: Denies acute: focal neurological deficit, motor or sensory focal neurological deficit, tremors, seizure like activity, confusion, dizziness, change in mental status, loss of bowel or bladder function, cauda equina like symptoms. : Denies acute: dysuria, hematuria, flank pain, increase in urinary frequency. PSYCH: Denies acute: hallucination, suicidal ideation, homicidal ideation. FEMALE: Denies acute: abnormal vaginal bleeding, foul odor, unusual discharge. PHYSICAL EXAM: General: ----no----acute distress, awake and alert. Hard of hearing Head: normocephalic, atraumatic. Neck: supple, trachea is midline, no swelling. Throat: Normal phonation. Eyes:, no erythema, no purulent discharge, no proptosis, no icterus. Heart: regular rate, regular rhythm, no significant murmur appreciated. Lungs: no apparent respiratory distress, Able to speak in full sentences. No wheezing, no rhonchi, no crackles. No stridors Clear to auscultation bilaterally. Abdomen: non tender to palpation, non distended, soft, no guarding, no rebound, + bowel sounds. Neuro: Awake, Alert, oriented to name, self, situation, follows commands GCS=15. Speech is normal. Skin: no petechia, no purpura, no cyanosis, non-pale, not jaundice. Lower extremities: --no - Pitting edema no deformity, no focal swelling, no calf TTP. Makes eye contact. moves all four extremities. ED COURSE: DISCLAIMER: This medical document was created using an electronic medical record system with voice recognition software and computerized dictation system. Although this document has been carefully reviewed, there might still be some phonetic and typographical errors. Occasional wrong-word or "sound-alike" substitutions may have occurred due to the inherent limitations of voice recognition software. These areas are purely typographical due to imperfections of the software programs and do not reflect any compromise in the patient's medical care. Please read the chart carefully and recognize, using context, where these substitutions have occurred. Chief Complaint: Heat Exposure Time Seen by MD: 00:46 Allergies: Coded Allergies: NO KNOWN ALLERGIES (Unverified , 12/29/22) Home Meds Reported Medications Cholecalciferol (Vitamin D-3 Super Strengt) 2,000 Unit Tab, 1 TAB PO DAILY for 90 Days, #90 25/25 Amlodipine Besylate (Amlodipine Besylate) 10 Mg Tab, 1 TAB PO DAILY for 30 Days, #30 825/25 Hydralazine Hcl (Hydralazine Hcl) 50 Mg Tab, 1 TAB PO TID for 60 Days, #180 8/25/25 Cholecalciferol (VITAMIN D3) 2,000 Unit Tab, 1 TAB PO DAILY for SUPPLEMENT, #30 TAB 5 Refills 12/29/22 Simvastatin (Simvastatin) 80 Mg Tab, 1 TAB PO HS for HIGH CHOLESTEROL for 90 Days, #90 12/29/22 Oxybutynin Chloride (Oxybutynin Chloride) 5 Mg Tab, 5 MG PO BID for OVERACTIVE BLADDER, TAB 12/29/22 Meclizine Hcl (Meclizine Hcl) 25 Mg Tab, 1 TAB PO DAILY PRN for DIZZINESS for 90 Days, #90 12/29/22 Magnesium Oxide (Magnesium) 250 Mg Tab, 250 MG PO DAILY for SUPPLEMENT, TAB 12/29/22 Lisinopril (Lisinopril) 10 Mg Tab, 1 TAB PO BID for HTN for 90 Days, #180 12/29/22 Clopidogrel Bisulfate (CLOPIDOGREL) 75 Mg Tab, 1 TAB PO DAILY for PVD for 90 Days, #90 12/29/22 Aspirin (Aspir-Low) 81 Mg Tab, 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 Was a procedure done?: No Differential Dx Considerations may include: Includes but not limited to thyroid disease, encephalopathy, electrolyte abnormality, sepsis, infection, intracranial pathology, drug adverse effects, arrhythmia, kidney insufficiency, ACS, CVA, malignancy, anemia X-Ray, Labs, Meds, VS Vital Signs Date Time Temp Pulse Resp B/P (MAP) Pulse Ox O2 Delivery O2 Flow Rate FiO2 12/10/24 01:59 99.0 82 16 109/67 (81) 94 99.0 12/09/24 22:46 96 16 142/61 94 Lab Test 12/10/24 03:03 12/10/24 00:34 12/09/24 23:30 Range/Units Troponin I High Sensitivity 174 *H 207 *H 227 *H </=34 ng/L White Blood Count 6.1 4.4-10.8 10^3/uL Red Blood Count 3.97 L 4.0-5.20 10^6/uL Hemoglobin 12.4 12.2-16.2 g/dL Hematocrit 36.8 36.0-46.0 % Mean Corpuscular Volume 92.7 80.0-100.0 fL Mean Corpuscular Hemoglobin 31.1 28.0-32.0 pg Mean Corpuscular Hemoglobin Concent 33.6 32.0-36.0 g/dL Red Cell Distribution Width 13.3 11.8-14.3 % Platelet Count 86 L 140-450 10^3/uL Mean Platelet Volume 9.2 6.9-10.8 fL Neutrophils (%) (Auto) 93.6 H 37.0-80.0 % Lymphocytes (%) (Auto) 3.3 L 10.0-50.0 % Monocytes (%) (Auto) 2.7 0.0-12.0 % Eosinophils (%) (Auto) 0.1 0.0-7.0 % Basophils (%) (Auto) 0.3 0.0-2.0 % Neutrophils # (Auto) 5.8 1.6-8.6 10 ^3/uL Lymphocytes # (Auto) 0.2 L 0.4-5.4 10 ^3/uL Monocytes # (Auto) 0.2 0-1.3 10 ^3/uL Eosinophils # (Auto) 0 0-0.8 10 ^3/uL Basophils # (Auto) 0 0-0.2 10 ^3/uL Nucleated Red Blood Cells 0.1 % Sodium Level 138 136-145 mmol/L Potassium Level 3.4 L 3.5-5.1 mmol/L Chloride Level 104 98-107 mmol/L Carbon Dioxide Level 23 20-31 mmol/L Anion Gap 11 5-15 Blood Urea Nitrogen 20 9-23 mg/dL Creatinine 1.48 H 0.550-1.02 mg/dL Glomerular Filtration Rate Calc 35 >90 mL/min BUN/Creatinine Ratio 13.5 10.0-20.0 Serum Glucose 152 H 74-106 mg/dL Lactic Acid Level 1.6 0.4-2.0 mmol/L Calcium Level 8.8 8.7-10.4 mg/dL Magnesium Level 2.0 1.6-2.6 mg/dL Total Bilirubin 0.3 0.2-1.0 mg/dL Aspartate Amino Transferase (AST) 141 H 13-40 U/L Alanine Aminotransferase (ALT) 55 H 7-40 U/L Alkaline Phosphatase 56 46-116 U/L Creatine Kinase 358 H 34-145 U/L Total Protein 7.1 5.7-8.2 g/dL Albumin 4.4 3.2-4.8 g/dL [address] [address] Ph: [phone] DIAGNOSTIC IMAGING Diagnostic Imaging Report : [id number] Signed PATIENT: AWILDA BANUELOS ACCT: [id number] UNIT: [id number] : 1940 LOC: ER ROOM / BED: / AGE / SEX: 84 / F ADM STATUS: REG ER SERVICE 12 ORDERING PHYSICIAN: TIRSO TORO DO PROCEDURE(s): HWOCT - HEAD WITHOUT CONTRAST REASON: weak, fall injury ORDER NUMBER(s): [id number], ACCESSION NUMBER(s): [id number] EXAM: CT HEAD WITHOUT CONTRAST INDICATION: weak, head injury TECHNIQUE: CT of the head without intravenous contrast. Radiation dose : Head: CT Dose: CTDI volume is 51.97 mGy. Dose-length product is 1024.32 mGy*cm The dose indicators for CT are the volume computed tomography (CT) dose index (CTDIvol) and the dose length product (DLP), and are measured in units of mGy and mGy-cm, respectively. These indicators are not patient dose, but values generated from the CT scanner acquisition factors. The report includes radiation exposure data for exposures received during this examination. COMPARISON: None FINDINGS: Motion artifact degrades fine detail. No acute territorial infarct, intracranial hemorrhage, or mass effect. There are global involutional changes with compensatory prominence of the ventricles and sulci. Patchy periventricular and subcortical white matter hypoattenuation is nonspecific but may be related to small vessel ischemic disease. Bilateral lens implants. The paranasal sinuses and mastoid air cells are clear. The osseous structures are unremarkable. IMPRESSION: 1. No acute territorial infarct, intracranial hemorrhage, or mass effect. 2. Age-related involutional changes. Chronic microvascular changes. Radiation optimization: All CT scans at this facility use at least one of these dose optimization techniques: Automated exposure control mA and/or kV adjustment per patient size (includes targeted exams where dose is matched to clinical indication) or iterative reconstruction. HS:Y ATED BY: ZAHRA DÍAZ MD DICTATED DATE/TIME: 12/10/244 SIGNED BY: ZAHRA DÍAZ MD SIGNED DATE/TIME: 12/10/244 CC: [place] [id number] Ph: [phone] DIAGNOSTIC IMAGING Diagnostic Imaging Report : [id number] Signed PATIENT: AWILDA BANUELOS ACCT: [id number] UNIT: [id number] : 1940 LOC: ER ROOM / BED: / AGE / SEX: 84 / F ADM STATUS: REG ER SERVICE 12 ORDERING PHYSICIAN: TIRSO TORO DO PROCEDURE(s): CXRP - CHEST PORTABLE REASON: weak, ORDER NUMBER(s): [id number], ACCESSION NUMBER(s): [id number] INDICATION: weak, SOB TECHNIQUE: Frontal view of the chest. COMPARISON: None FINDINGS/IMPRESSION: The lungs are clear. The cardiomediastinal silhouette is unremarkable. No pleural effusion or pneumothorax. No acute osseous abnormality. Median sternotomy changes are noted. ATED BY: ZAHRA DÍAZ MD DICTATED DATE/TIME: 12/10/242312 SIGNED BY: ZAHRA DÍAZ MD SIGNED DATE/TIME: 12/10/242312 CC: Time of 1ST Reevaluation: 00:47 Reevaluation 1ST: Unchanged Patient Education/Counseling: Diagnosis, Treatment Family Education/Counseling: Diagnosis, Treatment Comments MDM: patient presented with the above HPI.---generalized weak---workup was initiated. patient was found with the above mentioned diagnosis. the following medications were ordered: please refer to order lists of meds and tests obtained by myself Dr. Toro. Patient ED course and VS have been stabilized. Patient has been reassessed in the ED and remained in a stable condition. Pertinent incidental findings were discussed with the patient and/or family. Patient/family voices understanding and is agreeable with plan. Patient has been observed in the ED adequate length of time to insure improvement/stability. Escalation of care considered: Consideration of escalation to observation or admission Urinalysis was not available with the time of disposition. Patient was ADMITTED to the medicine team for further evaluation and treatment of their presentation. All the reports of any imaging studies that were ordered by myself were reviewed by myself. SEPSIS Sepsis Screen Date sepsis recognized/suspect: Dec 09, 2024 Time Sepsis recognized/suspect: 2251 Recent Procedure: No On Antibiotic Therapy: No Respiratory Rate >20: No Heart Rate >90: Yes Temp<36 C (96.8 F) or >38.3 C: No SBP <90 or MAP <65 mmHG: No New Acute Mental Status Change: No Is the patient on CPAP, BIPAP,: No Physician Orders Order Schedule Clerk (12/09/24 ) Chest Portable (12/09/24 23:13) Head Without Contrast (12/09/24 23:13) Vital Signs Date Time Temp Pulse Resp B/P (MAP) Pulse Ox O2 Delivery O2 Flow Rate FiO2 12/10/24 01:59 99.0 82 16 109/67 (81) 94 99.0 12/09/24 22:46 96 16 142/61 94 Laboratory Tests Test 12/09/24 23:30 Lactic Acid Level 1.6 mmol/L (0.4-2.0) White Blood Count 6.1 10^3/uL (4.4-10.8) Departure 1 Departure Time of Disposition: 01:50 Impression: Primary Impression: Generalized weakness Additional Impressions: Elevated troponin UTI (urinary tract infection) Disposition: ADMITTED INPATIENT Admit to: Tele Condition: Guarded Discharged With: Self Critical Care Note Critical Care Time?: Yes (45 min-critical care time only) I personally scribed for TIRSO TORO DO ([email or web address]) on 12/10/24 at 00:48. Electronically submitted by Swa Kuo ([facility]). TIRSO TORO DO Dec 10, 2024 00:48
[2024-12-10] MEDS: ASPirin-EC 325mg tab PO ONE (02:00)
[2024-12-10] MEDS ORDERED: DOCUSATE SOD 100 MG CAP PO PRN (04:45)
[2024-12-10] MEDS ORDERED: NITROGLYCERIN 0.4 MG SL TAB SL PRN (04:45)
[2024-12-10] MEDS ORDERED: ONDANSETRON HCL 4 MG/2 ML VIAL IV PRN (04:45)
[2024-12-10] MEDS ORDERED: MORPHINE SULFATE INJ 2 MG/ml SYRG IV PRN (04:45)
[2024-12-10] MEDS: POTASSIUM CHL 20 Meq TABLET PO ONE (05:15)
--- NOTE | 2024-12-10 05:24 | DVHHP2 ---
History of Present Illness Reason for Visit: Generalized weakness History of Present Illness Patient is a 84-year-old female heart of hearing with past medical history of hypertension and diabetes mellitus who presented to [facility] ED for evaluation of generalized weakness. Patient's sister reports that she had me chanical fall slipped off the bed without any head or neck injury or loss of consciousness, and has been weak since then.Patient is typically ambulatory but has not been walking as much due to weakness. Patient was seen and evaluated in the ED, laboratory data shows WBC 6.1, platelets 86, sodium 138, potassium 3.4, glucose 152, BUN 20, creatinine 1.48, troponin 227, AST 141, ALT 55, CK 358, blood pressure 109/67, heart rate 82, temperature 99.0 F, O2 saturation 94% on oxygen. Head CT showed no acute territorial infarct, intracranial hemorrhage, or mass effect. Please see medication orders section in the computer. On my assessment, patient's sister at bedside, denied chest pain, no headache, no dizziness, no diaphoresis, no shortness of breaths, no nausea, no vomiting, no fever, no chills. Patient was admitted for further evaluation and medical management. Past Medical History High Lipids, HTN Past Surgical History Denies all surgeries Family History Reviewed, noncontributory to the management of this case. Past Social History The patient lives at home, denies smoking, alcohol or illicit drugs abuse. Review of Systems Constitutional: Yes: Weakness; No: Fever, Chills, Sweats, Malaise, Other Eyes: No: Pain, Vision change, Conjunctivae inflammation, Eyelid inflammation, Other, Redness ENT: No: Ear pain, Ear discharge, Nose pain, Nose discharge, Nose congestion, Mouth pain, Mouth swelling, Throat pain, Throat swelling, Other Respiratory: No: Cough, Dry, Shortness of breath, SOB with excertion, Wheezing, Hemoptysis, Pleuritic Pain, Sputum, Wheezing, Other Cardiovascular: No: Chest Pain, Palpitations, Orthopnea, Paroxysmal Noc. Dyspnea, Edema, Lt Headedness, Other Gastrointestinal: No: Nausea, Vomiting, Abdominal Pain, Diarrhea, Constipation, Melena, Hematochezia, Other Genitourinary: No Dysuria, No Frequency, No Incontinence, No Hematuria, No Retention, No Other Musculoskeletal: No: other, neck pain, shoulder pain, arm pain, back pain, hand pain, leg pain, foot pain Skin: No: Rash, Lesions, Jaundice, Bruising, Other Neurological: No: Weakness, Numbness, Incoordination, Change in speech, Confusion, Seizures, Other Allergies: Coded Allergies: NO KNOWN ALLERGIES (Unverified , 12/29/22) Exam Vital Signs Vital Signs Date Time Temp Pulse Resp B/P (MAP) Pulse Ox O2 Delivery O2 Flow Rate FiO2 12/10/24 01:59 99.0 82 16 109/67 (81) 94 99.0 General Appearance: Alert, Oriented X3, Cooperative, No acute distress HEENT: Atraumatic, PERRLA, EOMI, Mucous membr. moist/pink Respiratory: Normal air movement Cardiovascular: Regular rate, Normal S1, Normal S2, No murmurs Abdominal: Normal bowel sounds, Soft, No tenderness, No hepatospenomegaly, No masses Extremities: No clubbing, No cyanosis, No edema, Normal pulses, No tenderness/swelling Skin: No rashes, No breakdown, No significant lesion Neuro: Normal speech, Normal tone, Sensation intact, Cranial nerves 3-12 NL, Reflexes 2+, Other (Generalized weakness) Psych/Mental Status: Mental status NL, Mood NL Labs/Xrays Labs Test 12/10/24 03:03 12/09/24 23:30 Range/Units Troponin I High Sensitivity 174 *H </=34 ng/L White Blood Count 6.1 4.4-10.8 10^3/uL Red Blood Count 3.97 L 4.0-5.20 10^6/uL Hemoglobin 12.4 12.2-16.2 g/dL Hematocrit 36.8 36.0-46.0 % Mean Corpuscular Volume 92.7 80.0-100.0 fL Mean Corpuscular Hemoglobin 31.1 28.0-32.0 pg Mean Corpuscular Hemoglobin Concent 33.6 32.0-36.0 g/dL Red Cell Distribution Width 13.3 11.8-14.3 % Platelet Count 86 L 140-450 10^3/uL Mean Platelet Volume 9.2 6.9-10.8 fL Neutrophils (%) (Auto) 93.6 H 37.0-80.0 % Lymphocytes (%) (Auto) 3.3 L 10.0-50.0 % Monocytes (%) (Auto) 2.7 0.0-12.0 % Eosinophils (%) (Auto) 0.1 0.0-7.0 % Basophils (%) (Auto) 0.3 0.0-2.0 % Neutrophils # (Auto) 5.8 1.6-8.6 10 ^3/uL Lymphocytes # (Auto) 0.2 L 0.4-5.4 10 ^3/uL Monocytes # (Auto) 0.2 0-1.3 10 ^3/uL Eosinophils # (Auto) 0 0-0.8 10 ^3/uL Basophils # (Auto) 0 0-0.2 10 ^3/uL Nucleated Red Blood Cells 0.1 % Sodium Level 138 136-145 mmol/L Potassium Level 3.4 L 3.5-5.1 mmol/L Chloride Level 104 98-107 mmol/L Carbon Dioxide Level 23 20-31 mmol/L Anion Gap 11 5-15 Blood Urea Nitrogen 20 9-23 mg/dL Creatinine 1.48 H 0.550-1.02 mg/dL Glomerular Filtration Rate Calc 35 >90 mL/min BUN/Creatinine Ratio 13.5 10.0-20.0 Serum Glucose 152 H 74-106 mg/dL Lactic Acid Level 1.6 0.4-2.0 mmol/L Calcium Level 8.8 8.7-10.4 mg/dL Magnesium Level 2.0 1.6-2.6 mg/dL Total Bilirubin 0.3 0.2-1.0 mg/dL Aspartate Amino Transferase (AST) 141 H 13-40 U/L Alanine Aminotransferase (ALT) 55 H 7-40 U/L Alkaline Phosphatase 56 46-116 U/L Creatine Kinase 358 H 34-145 U/L Total Protein 7.1 5.7-8.2 g/dL Albumin 4.4 3.2-4.8 g/dL PATIENT: AWILDA BANUELOS ACCT: [id number] UNIT: [id number] : 1940 LOC: ER ROOM / BED: / AGE / SEX: 84 / F ADM STATUS: REG ER SERVICE [id number] ORDERING PHYSICIAN: TIRSO TORO DO PROCEDURE(s): HWOCT - HEAD WITHOUT CONTRAST REASON: weak, fall injury ORDER NUMBER(s): [id number], ACCESSION NUMBER(s): [id number] EXAM: CT HEAD WITHOUT CONTRAST INDICATION: weak, head injury TECHNIQUE: CT of the head without intravenous contrast. Radiation dose : Head: CT Dose: CTDI volume is 51.97 mGy. Dose-length product is 1024.32 mGy*cm The dose indicators for CT are the volume computed tomography (CT) dose index (CTDIvol) and the dose length product (DLP), and are measured in units of mGy and mGy-cm, respectively. These indicators are not patient dose, but values generated from the CT scanner acquisition factors. The report includes radiation exposure data for exposures received during this examination. COMPARISON: None FINDINGS: Motion artifact degrades fine detail. No acute territorial infarct, intracranial hemorrhage, or mass effect. There are global involutional changes with compensatory prominence of the ventricles and sulci. Patchy periventricular and subcortical white matter hypoattenuation is nonspecific but may be related to small vessel ischemic disease. Bilateral lens implants. The paranasal sinuses and mastoid air cells are clear. The osseous structures are unremarkable. IMPRESSION: 1. No acute territorial infarct, intracranial hemorrhage, or mass effect. 2. Age-related involutional changes. Chronic microvascular changes. ORDERING PHYSICIAN: TIRSO TORO DO PROCEDURE(s): CXRP - CHEST PORTABLE REASON: weak, ORDER NUMBER(s): [id number], ACCESSION NUMBER(s): [id number] INDICATION: weak, SOB TECHNIQUE: Frontal view of the chest. COMPARISON: None FINDINGS/IMPRESSION: The lungs are clear. The cardiomediastinal silhouette is unremarkable. No pleural effusion or pneumothorax. No acute osseous abnormality. Median sternotomy changes are noted. SEPSIS Sepsis Screen Date sepsis recognized/suspect: Dec 09, 2024 Time Sepsis recognized/suspect: 2251 Recent Procedure: No On Antibiotic Therapy: No Respiratory Rate >20: No Heart Rate >90: Yes Temp<36 C (96.8 F) or >38.3 C: No SBP <90 or MAP <65 mmHG: No New Acute Mental Status Change: No Is the patient on CPAP, BIPAP,: No Physician Orders Paper Making Machine Operator (12/09/24 ) Urinalysis (12/09/24 23:13) Chest Portable (12/09/24 23:13) Electrocardigram (12/09/24 23:13) Head Without Contrast (12/09/24 23:13) Complete Blood Count (12/10/24 04:34) Comprehensive Metabolic Panel (12/10/24 04:34) Aspirin Tablet (12/10/24 10:00) Clopidogrel Bisulfate (Plavix) (12/10/24 10:00) Lisinopril Tablet (Zestril Tablet) (12/10/24 10:00) Ibuprofen Tablet (Motrin Tablet) (12/10/24 04:45) Atorvastatin (Lipitor) (12/10/24 22:00) Oxybutynin Chloride Tablet (Ditropan Tab (12/10/24 10:00) Cholecalciferol Tablet (Vitamin D3 Table (12/10/24 10:00) * Cardiology Consult (12/10/24 04:34) Admit (12/10/24 04:34) Allergies (12/10/24 04:34) Code Status (12/10/24 04:34) Sodium Chloride 0.9% (12/10/24 04:45) Oxygen Per Hour (12/10/24 04:34) Hydrocodone-Acet 5/325mg Tab ([place] 5/32 (12/10/24 04:45) Ondansetron Hcl (Zofran) (12/10/24 04:45) Docusate Sodium Capsule (Colace Capsule) (12/10/24 04:45) Fall Risk Precautions In Place QSHIFT (12/10/24 04:34) Complete Blood Count (12/11/24 04:00) Comprehensive Metabolic Panel (12/11/24 04:00) Cardiac Diet-2gna,Lofat,Lochol (12/10/24 Breakfast) Condition: Serious (12/10/24 04:34) Maintain Bed Rest (12/10/24 04:34) Sequential Compression Device (12/10/24 ) Nitroglycerin Sublingual (Ntrostat Subli (12/10/24 04:45) Morphine Sulfate Injection (12/10/24 04:45) Stat Ekg For Chest Pain (12/10/24 04:34) Notify Md Of Changes From Base (12/10/24 04:34) Supervisor Blood Donor Recruiters For 24 Hours (12/10/24 04:34) Emergency Dysrhythmia Protocol (12/10/24 04:34) Rhythm Strips Once Every Shift (12/10/24 04:34) Oxygen By Nasal Cannula (12/10/24 04:34) Vital Signs Date Time Temp Pulse Resp B/P (MAP) Pulse Ox O2 Delivery O2 Flow Rate FiO2 12/10/24 01:59 99.0 82 16 109/67 (81) 94 99.0 12/09/24 22:46 96 16 142/61 94 Laboratory Tests Test 12/09/24 23:30 Lactic Acid Level 1.6 mmol/L (0.4-2.0) White Blood Count 6.1 10^3/uL (4.4-10.8) Medications Medications Dose Ordered Sig/Ronel Route Start Time Stop Time Status Last Admin Dose Admin Sodium Chloride 1,000 ml @ 1,000 mls/hr Q1H ONCE IV 12/09/24 23:15 12/10/24 00:14 DC 12/09/24 01:55 1,000 MLS/HR Assessment/Plan Assessment/Plan Generalized weakness Hypokalemia Thrombocytopenia Elevated troponin Elevated liver enzymes Plan 1. Admit to telemetry unit 2. Breathing treatment 3. Pain control management 4. Management of fluids and electrolytes 5. Consultation for Cardiology 6. Diagnostic tests chest x-ray 7. DVT prophylaxis-on Plavix 8. Repeat labs CBC, CMP in a.m. 9. Continue with current medical management 10. Treatment plan discussed with patient and RN. Patient verbalized understanding. Plan discussed with: Patient, Other (RN) My Orders Orders - GABI CARLTON DNP Procedure Category Date Status Time Complete Blood Count LAB 12/10/24 Logged 04:34 Comprehensive LAB 12/10/24 Logged Metabolic Panel 04:34 Aspirin Tablet PHA 12/10/24 Logged 10:00 Clopidogrel Bisulfate PHA 12/10/24 Logged (Plavix) 10:00 Lisinopril Tablet PHA 12/10/24 Logged (Zestril Tablet) 10:00 Ibuprofen Tablet PHA 12/10/24 Logged (Motrin Tablet) 04:45 Atorvastatin (Lipitor) PHA 12/10/24 Logged 22:00 Oxybutynin Chloride PHA 12/10/24 Logged Tablet (Ditropan Tab 10:00 Cholecalciferol PHA 12/10/24 Logged Tablet (Vitamin D3 10:00 * Cardiology Consult CONS 12/10/24 Transmitted 04:34 Admit ADMIT 12/10/24 Transmitted 04:34 Allergies BECKY 12/10/24 In Process 04:34 Code Status CODE 12/10/24 Transmitted 04:34 Sodium Chloride 0.9% PHA 12/10/24 Logged 04:45 Oxygen Per Hour RT 12/10/24 Transmitted 04:34 Hydrocodone-Acet PHA 12/10/24 Logged 5/325mg Tab ([place] 04:45 Ondansetron Hcl PHA 12/10/24 Logged (Zofran) 04:45 Docusate Sodium PHA 12/10/24 Logged Capsule (Colace 04:45 Fall Risk Precautions BECKY 12/10/[address] 04:34 Complete Blood Count LAB 12/11/24 Verified 04:00 Comprehensive LAB 12/11/24 Verified Metabolic Panel 04:00 Cardiac DIET 12/10/24 Transmitted Diet-2gna,Lofat,Lochol Breakfast Condition: Serious BECKY 12/10/24 In Process 04:34 Maintain Bed Rest [facility] 12/10/24 In Process 04:34 Sequential BECKY 12/10/24 In Process Compression Device Nitroglycerin [facility] 12/10/24 Logged Sublingual (Ntrostat 04:45 Morphine Sulfate PHA 12/10/24 Logged Injection 04:45 Stat Ekg For Chest [facility] 12/10/24 In Process Pain 04:34 Notify Md Of Changes [facility] 12/10/24 In Process From Base 04:34 Supervisor Blood Donor Recruiters For [facility] 12/10/24 In Process 24 Hours 04:34 Emergency Dysrhythmia [facility] 12/10/24 In Process Protocol 04:34 Rhythm Strips Once [facility] 12/10/24 In Process Every Shift 04:34 Oxygen By Nasal RT 12/10/24 Transmitted Cannula 04:34 Problem List: (1) Generalized weakness (2) Hypokalemia (3) Thrombocytopenia (4) Elevated troponin (5) Elevated liver enzymes Date of Service: Dec 10, 2024 Billing Provider: GABI CARLTON DNP Common Visit Codes: [id number] INP/OBS CARE (HIGH) GABI CARLTON DNP Dec 10, 2024 05:24
[2024-12-10 05:52] LABS: Hematocrit 36.9 % (36.0-46.0); Hemoglobin 12.5 g/dL (12.2-16.2); Mean Corpuscular Hemoglobin 31.9 pg (28.0-32.0); Mean Corpuscular Volume 93.6 fL (80.0-100.0); Nucleated Red Blood Cells % 0.1 %
[2024-12-10 06:23] LABS: Albumin 4.3 g/dL (3.2-4.8); Alkaline Phosphatase 54 U/L (46-116); Anion Gap 12 (5-15); BUN/Creatinine Ratio 14.9 (10.0-20.0); Bilirubin, Total 0.4 mg/dL (0.2-1.0); Blood Urea Nitrogen 20 mg/dL (9-23); Carbon Dioxide 24 mmol/L (20-31); Chloride 103 mmol/L (98-107); Sodium 139 mmol/L (136-145); Total Protein 7.1 g/dL (5.7-8.2)
[2024-12-10 06:30] LABS: Alanine Aminotransferase 57 U/L (7-40); Calcium 8.4 mg/dL (8.7-10.4); Glucose 148 mg/dL (74-106); Potassium 3.5 mmol/L (3.5-5.1)
--- NOTE | 2024-12-10 09:27 | DVHINCON2 ---
ALONSO ABARCA [facility] 12/10/24 0927: Date Seen: Dec 10, 2024 Referring Physician SEBLE Story Reason for Consultation Elevated troponin History of Present Illness This is an 84-year-old female patient who presents to the emergency room with chief complaint of generalized weakness for two days prior to emergency room arrival. Cardiology has been consulted at this time for elevated troponin level. 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 A twelve lead electrocardiogram was ordered and obtained at time of assessment and reveals a normal sinus rhythm with diffuse T-wave inversion. Initial troponin level of 227ng/L with down trend thereafter. The patient denies any cardiac symptoms such as chest pain, shortness of breath, palpitations, or dizziness. At the time of assessment, the patient is in the emergency room lobby in a wheelchair and not connected to any registered nurse cardiac. Significant past medical history includes coronary artery disease status post double-vessel CABG in 2009, peripheral vascular disease status post left carotid stent (on Plavix and aspirin), hypertension , dyslipidemia, chronic kidney disease, and hard of hearing. The patient reports following up with a precision agronomist in the outpatient setting (she forgot his name). Past Medical History Past medical history reviewed. No other significant than mentioned above. 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 Social History Patient has a 15 pack-year history, quit smoking approximately 20 years ago Denies illicit drug use Denies any alcohol use Allergies: Coded Allergies: NO KNOWN ALLERGIES (Unverified , 12/29/22) Home Meds Reported Medications Cholecalciferol (VITAMIN D3) 2,000 Unit Tab, 1 TAB PO DAILY for SUPPLEMENT, #30 TAB 5 Refills 12/29/22 Simvastatin (Simvastatin) 80 Mg Tab, 80 MG PO DAILY for HIGH CHOLESTEROL for 30 Days, MG 12/29/22 Oxybutynin Chloride (Oxybutynin Chloride) 5 Mg Tab, 5 MG PO BID for OVERACTIVE BLADDER, TAB 12/29/22 Meclizine Hcl (Meclizine Hcl) 25 Mg Tab, 25 MG PO DAILY PRN for DIZZINESS for 30 Days, MG 12/29/22 Magnesium Oxide (Magnesium) 250 Mg Tab, 250 MG PO DAILY for SUPPLEMENT, TAB 12/29/22 Lisinopril (Lisinopril) 10 Mg Tab, 10 MG PO BID for HTN for 30 Days, MG 12/29/22 Clopidogrel Bisulfate (CLOPIDOGREL) 75 Mg Tab, 75 MG PO DAILY for PVD, MG 12/29/22 Aspirin (Aspir-Low) 81 Mg Tab, 81 MG PO DAILY for S/P CABG, MG 12/29/22 Home Meds Home medications reviewed. Current Medications Current Medications Medications (Trade) Dose Ordered Sig/Ronel Route PRN Reason Start Time Stop Time Status Last Admin Aspirin 81 mg DAILY PO 12/10/24 10:00 12/10/24 05:50 DC Clopidogrel Bisulfate (Plavix) 75 mg DAILY PO 12/10/24 10:00 UNV Lisinopril (Zestril Tablet) 10 mg DAILY PO 12/10/24 10:00 Ibuprofen (Motrin Tablet) 400 mg Q6HP PRN PO PAIN SCALE 1-3 OR TEMP>100.4 12/10/24 04:45 Atorvastatin Calcium (Lipitor) 20 mg HS PO 12/10/24 22:00 Oxybutynin Chloride (Ditropan Tablet) 5 mg Q12HR PO 12/10/24 10:00 Cholecalciferol (Vitamin D3 Tablet) 2,000 unit DAILY PO 12/10/24 10:00 Sodium Chloride 1,000 ml @ 60 mls/hr [id number] IV 12/10/24 04:45 Acetaminophen/ Hydrocodone Bitart ([place] 5/325MG Tab) 1 tab Q4HP PRN PO MODERATE PAIN (4-6 PAIN SCALE) 12/10/24 04:45 Ondansetron HCl (Zofran) 4 mg Q4HP PRN IV NAUSEA / VOMITING 12/10/24 04:45 Docusate Sodium (Colace Capsule) 100 mg BIDPRN PRN PO FOR CONSTIPATION 12/10/24 04:45 Nitroglycerin (Ntrostat Sublingual) 0.4 mg Q5MINP PRN SL FOR CHEST PAIN 12/10/24 04:45 Morphine Sulfate 2 mg Q30M PRN IV FOR CHEST PAIN 12/10/24 04:45 Review of Systems Constitutional: Generalized weakness Ears, Nose, & Throat: No symptom reported Eyes: No symptom reported Neurological: No symptoms reported Pulmonary/Respiratory: No symptoms reported Cardiovascular: No symptom reported Gastrointestinal: No symptom reported Genitourinary: No symptom reported Musculoskeletal: No symptom reported Skin: No symptom reported Psychiatric: No symptom reported Endocrine: No symptom reported Hematologic/Lymphatic: No symptom reported Vital Signs Vital Signs Date Time Temp Pulse Resp B/P (MAP) Pulse Ox O2 Delivery O2 Flow Rate FiO2 12/10/24 05:00 98.3 75 18 136/56 (82) 95 98.3 Physical Exam General Appearance: Cooperative. Well-developed. Well-nourished. No acute distress. Pulmonary/Respiratory: Clear, bilateral breaths sounds. Cardiovascular/Chest: Regular rate and rhythm. Peripheral Pulses: 2+ Radial (R). 2+ Radial (L). 2+ Pedal (R). 2+ Pedal (L) Abdominal Exam: Normal bowel sounds. Ankle Exam: Negative ankle edema Lower extremities: Negative lower extremity edema Neuro/Mental Status: A/OX4, coherent. Thoughts/Psych: Normal thought pattern. Appropriate mood and affect. Good judgment and insight. Appearance: No acute distress. Skin Exam: Normal inspection. Normal color. Warm and dry. Labs/Diagnostic Data Labs Test 12/10/24 05:26 12/10/24 03:03 12/09/24 23:30 Range/Units White Blood Count 5.6 4.4-10.8 10^3/uL Red Blood Count 3.94 L 4.0-5.20 10^6/uL Hemoglobin 12.5 12.2-16.2 g/dL Hematocrit 36.9 36.0-46.0 % Mean Corpuscular Volume 93.6 80.0-100.0 fL Mean Corpuscular Hemoglobin 31.9 28.0-32.0 pg Mean Corpuscular Hemoglobin Concent 34.0 32.0-36.0 g/dL Red Cell Distribution Width 14.0 11.8-14.3 % Platelet Count 84 L 140-450 10^3/uL Mean Platelet Volume 8.5 6.9-10.8 fL Neutrophils (%) (Auto) 90.5 H 37.0-80.0 % Lymphocytes (%) (Auto) 5.5 L 10.0-50.0 % Monocytes (%) (Auto) 3.7 0.0-12.0 % Eosinophils (%) (Auto) 0.1 0.0-7.0 % Basophils (%) (Auto) 0.2 0.0-2.0 % Neutrophils # (Auto) 5.1 1.6-8.6 10 ^3/uL Lymphocytes # (Auto) 0.3 L 0.4-5.4 10 ^3/uL Monocytes # (Auto) 0.2 0-1.3 10 ^3/uL Eosinophils # (Auto) 0 0-0.8 10 ^3/uL Basophils # (Auto) 0 0-0.2 10 ^3/uL Nucleated Red Blood Cells 0.1 % Sodium Level 139 136-145 mmol/L Potassium Level 3.5 3.5-5.1 mmol/L Chloride Level 103 98-107 mmol/L Carbon Dioxide Level 24 20-31 mmol/L Anion Gap 12 5-15 Blood Urea Nitrogen 20 9-23 mg/dL Creatinine 1.34 H 0.550-1.02 mg/dL Glomerular Filtration Rate Calc 39 >90 mL/min BUN/Creatinine Ratio 14.9 10.0-20.0 Serum Glucose 148 H 74-106 mg/dL Calcium Level 8.4 L 8.7-10.4 mg/dL Total Bilirubin 0.4 0.2-1.0 mg/dL Aspartate Amino Transferase (AST) 125 H 13-40 U/L Alanine Aminotransferase (ALT) 57 H 7-40 U/L Alkaline Phosphatase 54 46-116 U/L Total Protein 7.1 5.7-8.2 g/dL Albumin 4.3 3.2-4.8 g/dL Troponin I High Sensitivity 174 *H </=34 ng/L Lactic Acid Level 1.6 0.4-2.0 mmol/L Magnesium Level 2.0 1.6-2.6 mg/dL Creatine Kinase 358 H 34-145 U/L Assessment NSTEMI , rule out progressive coronary artery disease Rule out structural heart disease Coronary artery disease with double-vessel CABG in 2010 Peripheral vascular disease status post left carotid stent (on Plavix and aspirin) Hypertension Dyslipidemia Thrombocytopenia Chronic kidney disease Transaminitis History of tobacco use Hard of hearing Plan/Recommendation We will continue with the following plan/recommendations (Dr. Sosa): * Transthoracic echocardiogram reveals EF 50-55% * Hold antiplatelet therapy at this time given thrombocytopenia * TALIA score: 4 points * HEART score: 6 points * Blood pressure control * Restart lipid-lowering agent with improved liver enzymes * Close Cardiac surveillance Case discussed with . Given the patient's elevated troponin level, comorbidities, and twelve lead electrocardiogram, we will recommend for coronary angiogram with left heart catheterization. Tentatively, we will schedule the patient on 12/12/2024 with improved and/or stable platelet count. Thank you for allowing us to care for this patient. Please call with any questions or concerns. Critical care time spent: 44 minutes This medical document was created using an electronic medical record system with voice recognition software and computerized dictation system. Although this document has been carefully reviewed, there might still be some phonetic and typographical errors. Occasional wrong-word or ``sound-alike substitutions may have occurred due to the inherent limitations of voice recognition software. These areas are purely typographical due to imperfections of the software programs and do not reflect any compromise in the patient's medical care. Please read the chart carefully and recognize, using context, where these substitutions have occurred. Plan discussed with: Patient NYHA Physical activity limitations: NA Date of Service: Dec 10, 2024 Billing Provider: ALONSO ABARCA TOOL DESIGN DRAFTSPERSON Cardiology Common Codes: [id number] INP/OBS CARE (High) Cardiology Consultation Codes: [id number] CONSULT <45MIN TARAH SOSA MD 12/12/24 0955: Allergies: Coded Allergies: NO KNOWN ALLERGIES (Unverified , 12/29/22) Home Meds Reported Medications Cholecalciferol (VITAMIN D3) 2,000 Unit Tab, 1 TAB PO DAILY for SUPPLEMENT, #30 TAB 5 Refills 12/29/22 Simvastatin (Simvastatin) 80 Mg Tab, 80 MG PO DAILY for HIGH CHOLESTEROL for 30 Days, MG 12/29/22 Oxybutynin Chloride (Oxybutynin Chloride) 5 Mg Tab, 5 MG PO BID for OVERACTIVE BLADDER, TAB 12/29/22 Meclizine Hcl (Meclizine Hcl) 25 Mg Tab, 25 MG PO DAILY PRN for DIZZINESS for 30 Days, MG 12/29/22 Magnesium Oxide (Magnesium) 250 Mg Tab, 250 MG PO DAILY for SUPPLEMENT, TAB 12/29/22 Lisinopril (Lisinopril) 10 Mg Tab, 10 MG PO BID for HTN for 30 Days, MG 12/29/22 Clopidogrel Bisulfate (CLOPIDOGREL) 75 Mg Tab, 75 MG PO DAILY for PVD, MG 12/29/22 Aspirin (Aspir-Low) 81 Mg Tab, 81 MG PO DAILY for S/P CABG, MG 12/29/22 Plan/Recommendation pt seen with RN agree with PLUMBER GASFITTER plan pt needs C for eval has low PLTs monitor this Plan discussed with: Patient ABARCA,ALONSOJEFFERSON NAIR Dec 10, 2024 09:27 TARAH SOSA MD Dec 12, 2024 09:55
[2024-12-10] MEDS ORDERED: LISINOPRIL 5 MG TAB PO SCH (10:00)
[2024-12-10] MEDS: CHOLECALCIFEROL (VITD3) 1,000UNIT=25mCg TAB PO SCH (11:47)
[2024-12-10] MEDS: SODIUM CHLORIDE 0.9% 1,000 ML IV SCH (11:47)
[2024-12-10] MEDS: OXYBUTYNIN CHL 5 MG TAB PO SCH (11:47)
[2024-12-10] MEDS: CLOPIDOGREL BISULFATE 75 MG TAB PO SCH (12:31)
--- NOTE | 2024-12-10 12:50 | DVHPN2 ---
Subjective Seen and examined in the lobby. No chest pain or shortness of breath. Very hard of hearing. Changes from previous H/P or p: No Changes Eyes: No Pain, No Vision change, No Conjunctivae inflammation, No Eyelid inflammation, No Other, No Redness ENT: No Ear pain, No Ear discharge, No Nose pain, No Nose discharge, No Nose congestion, No Mouth pain, No Mouth swelling, No Throat pain, No Throat swelling, No Other Cardiovascular: No Chest Pain, No Palpitations, No Orthopnea, No Paroxysmal Noc. Dyspnea, No Edema, No Lt Headedness, No Other Respiratory: No Cough, No Dry, No Shortness of breath, No SOB with excertion, No Wheezing, No Hemoptysis, No Pleuritic Pain, No Sputum, No Other Gastrointestinal: No Nausea, No Vomiting, No Abdominal Pain, No Diarrhea, No Constipation, No Melena, No Hematochezia, No Other Genitourinary: No Dysuria, No Frequency, No Incontinence, No Hematuria, No Retention, No Other Musculoskeletal: No other, No neck pain, No shoulder pain, No arm pain, No back pain, No hand pain, No leg pain, No foot pain Skin: No Rash, No Lesions, No Jaundice, No Bruising, No Other Objective Vitals Vital Signs Date Time Temp Pulse Resp B/P (MAP) Pulse Ox O2 Delivery O2 Flow Rate FiO2 12/10/24 11:47 146/68 12/10/24 11:10 97.9 79 14 95 97.9 General Appearance: Alert, Oriented X3, Cooperative Lungs: Clear to auscultation Cardiovascular: Regular rate, Normal S1, Normal S2 Abdomen: Normal bowel sounds, Soft Psych/Mental Status: Mental status NL Medications Current Medications Medications Dose Ordered Sig/Ronel Route Start Time Stop Time Status Last Admin Dose Admin Clopidogrel Bisulfate 75 mg DAILY PO 12/10/24 10:00 Hold Ibuprofen 400 mg Q6HP PRN PO 12/10/24 04:45 Atorvastatin Calcium 20 mg HS PO 12/10/24 22:00 Oxybutynin Chloride 5 mg Q12HR PO 12/10/24 10:00 12/10/24 11:47 5 MG Cholecalciferol 2,000 unit DAILY PO 12/10/24 10:00 12/10/24 11:47 2,000 UNIT Sodium Chloride 1,000 ml @ 60 mls/hr [id number] IV 12/10/24 04:45 12/10/24 11:47 60 MLS/HR Acetaminophen/ Hydrocodone Bitart 1 tab Q4HP PRN PO 12/10/24 04:45 Ondansetron HCl 4 mg Q4HP PRN IV 12/10/24 04:45 Docusate Sodium 100 mg BIDPRN PRN PO 12/10/24 04:45 Nitroglycerin 0.4 mg Q5MINP PRN SL 12/10/24 04:45 Morphine Sulfate 2 mg Q30M PRN IV 12/10/24 04:45 Hydralazine HCl 50 mg Q12HR PO 12/10/24 10:00 12/10/24 11:47 50 MG Laboratory Results Laboratory Tests 12/10/24 05:26 Chemistry Test 12/09/24 23:30 12/10/24 05:26 Albumin 4.4 g/dL (3.2-4.8) 4.3 g/dL (3.2-4.8) Calcium Level 8.8 mg/dL (8.7-10.4) 8.4 mg/dL (8.7-10.4) L Magnesium Level 2.0 mg/dL (1.6-2.6) Total Protein 7.1 g/dL (5.7-8.2) 7.1 g/dL (5.7-8.2) LFT Test 12/09/24 23:30 12/10/24 05:26 Alanine Aminotransferase (ALT) 55 U/L (7-40) H 57 U/L (7-40) H Alkaline Phosphatase 56 U/L (46-116) 54 U/L (46-116) Aspartate Amino Transferase (AST) 141 U/L (13-40) H 125 U/L (13-40) H Total Bilirubin 0.3 mg/dL (0.2-1.0) 0.4 mg/dL (0.2-1.0) Assessment/Plan Assessment/Plan # NSTEMI - Had stress test in 2022, no evidence of ischemia # Thrombocytopenia - Monitor, HOLD DAPT # Transaminitis - US Abd - Hep Panel # Hard of Hearing Critical care time 40 mins Plan discussed with: Patient My Orders Orders - YUNIER NORTON MD Procedure Category Date Status Time Basic Metabolic Panel LAB 12/11/24 Verified 04:00 Comprehensive LAB 12/11/24 Verified Metabolic Panel 04:00 Acute Hepatitis Panel LAB 12/10/24 Logged 12:34 Comprehensive LAB 12/10/24 Logged Hepatitis Panel 12:34 Ammonia LAB 12/10/24 Logged 12:34 Abdomen Limited US 12/10/24 Logged 12:35 Date of Service: Dec 10, 2024 Billing Provider: YUNIER NORTON MD Common Visit Codes: [id number] CARE 30-74 MIN YUNIER NORTON MD Dec 10, 2024 12:50
[2024-12-10 13:24] VITALS: BP 131/68; PULSE 80; RESP 16; TEMP 98.7; O2SAT 97
[2024-12-10 13:25] VITALS: RESP 16; O2SAT 95
--- NOTE | 2024-12-10 14:34 | DVH ---
INDICATION: transaminitis TECHNIQUE: US gallbladder. Multiple real-time sonographic images of the abdomen were obtained. COMPARISON: None FINDINGS: The liver is homogenous in echogenicity. The liver measures 13.9 cm. No intrahepatic bilia ry ductal dilatation is noted. The gallbladder wall measures 0.2 cm and is unremarkable. No gallstones or sludge is seen. The com mon duct measures 0.53 cm and is unremarkable. No pericholecystic fluid is noted. The right kidney measures 9.5cm. No hydronephrosis. The pancreas is not well visualized due to obscuration from bowel gas. The visualized portions of the IVC and aorta are grossly unremarkable. IMPRESSION: 1. Liver measures 13.9 cm and has normal parenchyma. 2. There is no cholelithiasis. Negative sonographic Powell's sign 3. Right kidney measures 9.5 cm there is no hydronephrosis.
--- NOTE | 2024-12-10 16:14 | DVHSR ---
APPROVED REPORT EXAM: Two-dimensional and M-mode echocardiogram with Doppler and color Doppler. Blood Pressure: 146/68 mmHg INDICATION Evaluate cardiac function Wall motion Surgery/Intervention Valve Replacement: Bioprosthetic Type: AV CABG: RISK FACTORS Height: 5'0", Weight: 110 DIMENSIONS LVDd3.6 (3.8-5.7cm)LA (2D)3.4 (1.9-4.0cm)Aortic Root (2.0-3.7cm) LVDs2.5 (2.5-4.0cm)LA (MM) (1.9-4.0cm)Aortic Cusp Exc (1.5-2.0cm) EF (%) 60.0 (55-70%)Rt. Atrium3.8 (1.9-4.0cm)Asc. Aorta cm IVSd0.9 (0.7-1.1cm)RV (D) (1.8-2.4cm) PWd0.9 (0.7-1.1cm) Mitral Valve MitralMitral Stenosis E wave1.06m/sMV Mean GR.mmHg A wave1.12m/sMV Peak GR.mmHg E/A ratio0.92D MVAcm2 DECEL [id number] 1/2 Timems Aortic Valve Aortic ValveAortic Stenosis V11.28m/Zain Mean GR.18mmHg V23.01m/Zain Peak GR.36mmHg LVOT Diameter1.8 (1.8-2.4cm)Doppler AVA1.08cm2 Pulmonic Valve V20.86m/s Other Information Technically limited study due to body habitus, patient lying flat. Conclusion lvef 50-55% by visual estimate normal rv function left atrium enlarged no severe valve abnormaliteis notedm mild mitral regurg
[2024-12-10 17:09] VITALS: BP 97/79; PULSE 91; RESP 18; TEMP 98.2; O2SAT 94
[2024-12-10] MEDS: IBUPROFEN 400 MG TAB PO PRN (17:56)
[2024-12-10 20:00] VITALS: PULSE 109; PULSE 92; RESP 98; O2SAT 98
[2024-12-10 21:00] VITALS: BP 116/61; PULSE 92; RESP 16; TEMP 98; O2SAT 98
[2024-12-10] MEDS ORDERED: ATORVASTATIN 20 MG TAB PO SCH (22:00)
[2024-12-11] VITALS (8 sets, daily range): BP systolic 110–147; BP diastolic 60–69; PULSE 74–92; RESP 14–98; TEMP 97.7–100.5; O2SAT 97–100
[2024-12-11 07:17] LABS: Hematocrit 36.4 % (36.0-46.0); Hemoglobin 12.1 g/dL (12.2-16.2); Mean Corpuscular Hemoglobin 31.0 pg (28.0-32.0); Mean Corpuscular Volume 93.4 fL (80.0-100.0); Nucleated Red Blood Cells % 0.1 %
[2024-12-11 07:23] LABS: Albumin 3.7 g/dL (3.2-4.8); Alkaline Phosphatase 49 U/L (46-116); Anion Gap 10 (5-15); BUN/Creatinine Ratio 15.9 (10.0-20.0); Blood Urea Nitrogen 20 mg/dL (9-23); Calcium 8.7 mg/dL (8.7-10.4); Carbon Dioxide 24 mmol/L (20-31); Glucose 106 mg/dL (74-106); Potassium 4.1 mmol/L (3.5-5.1); Sodium 142 mmol/L (136-145); Total Protein 5.8 g/dL (5.7-8.2)
[2024-12-11 07:26] LABS: Alanine Aminotransferase 53 U/L (7-40); Bilirubin, Total 0.3 mg/dL (0.2-1.0); Chloride 108 mmol/L (98-107)
[2024-12-11 08:28] LABS: Urine Protein, UAD 1+ (Negative)
[2024-12-11 10:16] LABS: INR 0.99 (0.9-1.15); Prothrombin Time 10.5 sec (9.3-11.8)
--- NOTE | 2024-12-11 11:37 | DVH ---
Bilateral Lower Extremity Arterial Duplex Clinical History: ro pad Comparison: US BILAT LOW EXT ART DUPLEX on DOS: 01/29/23, US BILAT LOW EXT ART DUPLEX on DOS: 07/28/22 Technique: Duplex Doppler evaluation including color Doppler and spectral/pulsed waveform analysis of the lower extremity arteries was performed. Findings: RIGHT: Peak systolic velocities are as follows: LEACH CELL OPERATOR 187 cm/s Deep femoral 195 cm/s SFA proximal 256 cm/s SFA mid-portion 87 cm/s SFA distal 89 cm/s Popliteal 54 cm/s Posterior tibial 84 cm/s Anterior tibial 23 cm/s Peroneal N/V cm/s Dorsalis pedis 23 cm/s The waveforms are multiphasic. LEFT: Peak systolic velocities are as follows: LEACH CELL OPERATOR 162 cm/s Deep femoral 113 cm/s SFA proximal 82 cm/s SFA mid-portion 91 cm/s SFA distal 129 cm/s Popliteal 49 cm/s Posterior tibial 83 cm/s Anterior tibial 43 cm/s Peroneal N/V cm/s Dorsalis pedis 43 cm/s The waveforms are multiphasic. IMPRESSION: 20-49% stenosis of bilateral common femoral artery based on peak systolic velocity criteria. 50-75% stenosis of the proximal right superficial femoral artery based on peak systolic velocity emelyn gibson. REFERENCE VALUES, [facility]) vascular Imaging Lab Criteria: Peak systolic velocity rang es (in cm/sec) are as follows: <150 cm/s - <20 % stenosis 150-200 cm/s - 20-49% stenosis 200-300 cm/s - 50-75% stenosis >300 cm/s -> 75% stenosis
--- NOTE | 2024-12-11 12:35 | DVHPN2 ---
Subjective Seen and examined at bedside. For [facility] in AM. If Negative can DC Home. Changes from previous H/P or p: No Changes Eyes: No Pain, No Vision change, No Conjunctivae inflammation, No Eyelid inflammation, No Other, No Redness ENT: No Ear pain, No Ear discharge, No Nose pain, No Nose discharge, No Nose congestion, No Mouth pain, No Mouth swelling, No Throat pain, No Throat swelling, No Other Cardiovascular: No Chest Pain, No Palpitations, No Orthopnea, No Paroxysmal Noc. Dyspnea, No Edema, No Lt Headedness, No Other Respiratory: No Cough, No Dry, No Shortness of breath, No SOB with excertion, No Wheezing, No Hemoptysis, No Pleuritic Pain, No Sputum, No Other Gastrointestinal: No Nausea, No Vomiting, No Abdominal Pain, No Diarrhea, No Constipation, No Melena, No Hematochezia, No Other Genitourinary: No Dysuria, No Frequency, No Incontinence, No Hematuria, No Retention, No Other Musculoskeletal: No other, No neck pain, No shoulder pain, No arm pain, No back pain, No hand pain, No leg pain, No foot pain Skin: No Rash, No Lesions, No Jaundice, No Bruising, No Other Objective Vitals Vital Signs Date Time Temp Pulse Resp B/P (MAP) Pulse Ox O2 Delivery O2 Flow Rate FiO2 12/11/24 10:54 147/67 12/11/24 08:12 92 98 98 Nasal Cannula* 2 28 12/11/24 05:00 98.2 98.2 Intake/Output Intake and Output 12/11/24 07:00 Intake Total 400 ml Balance 400 ml Intake Oral 400 ml # Voids 3 General Appearance: Alert, Oriented X3, Cooperative Lungs: Clear to auscultation Cardiovascular: Regular rate, Normal S1, Normal S2 Abdomen: Normal bowel sounds, Soft Psych/Mental Status: Mental status NL Medications Current Medications Medications Dose Ordered Sig/Ronel Route Start Time Stop Time Status Last Admin Dose Admin Clopidogrel Bisulfate 75 mg DAILY PO 12/10/24 10:00 Hold Ibuprofen 400 mg Q6HP PRN PO 12/10/24 04:45 12/10/24 17:56 400 MG Oxybutynin Chloride 5 mg Q12HR PO 12/10/24 10:00 12/11/24 10:53 5 MG Cholecalciferol 2,000 unit DAILY PO 12/10/24 10:00 12/11/24 10:53 2,000 UNIT Sodium Chloride 1,000 ml @ 60 mls/hr [id number] IV 12/10/24 04:45 12/10/24 11:47 60 MLS/HR Acetaminophen/ Hydrocodone Bitart 1 tab Q4HP PRN PO 12/10/24 04:45 Ondansetron HCl 4 mg Q4HP PRN IV 12/10/24 04:45 Docusate Sodium 100 mg BIDPRN PRN PO 12/10/24 04:45 Nitroglycerin 0.4 mg Q5MINP PRN SL 12/10/24 04:45 Morphine Sulfate 2 mg Q30M PRN IV 12/10/24 04:45 Hydralazine HCl 50 mg Q12HR PO 12/10/24 10:00 12/11/24 10:54 50 MG Laboratory Results Laboratory Tests 12/11/24 06:25 Chemistry Test 12/11/24 06:25 Albumin 3.7 g/dL (3.2-4.8) Calcium Level 8.7 mg/dL (8.7-10.4) Total Protein 5.8 g/dL (5.7-8.2) Coagulation Test 12/11/24 09:38 Prothrombin Time 10.5 sec (9.3-11.8) Prothrombin Time INR 0.99 (0.9-1.15) LFT Test 12/11/24 06:25 Alanine Aminotransferase (ALT) 53 U/L (7-40) H Alkaline Phosphatase 49 U/L (46-116) Aspartate Amino Transferase (AST) 76 U/L (13-40) H Total Bilirubin 0.3 mg/dL (0.2-1.0) Urinalysis Test 12/10/24 07:00 Urine Color Yellow (Yellow) Urine Clarity Turbid (Clear) H Urine pH 5.5 (5.0-9.0) Urine Specific [place] 1.018 (1.001-1.035) Urine Protein 1+ (Negative) H Urine Ketones Negative (Negative) Urine Blood Negative /uL (Negative) Urine Nitrite Negative (Negative) Urine Bilirubin Negative (Negative) Urine Urobilinogen Normal mg/dL (Negative) Urine Leukocyte Esterase 2+ /uL (Negative) Urine RBC 1 /hpf (0 - 4) Urine Microscopic WBC 18 /HPF (0-5) H Urine Squamous Epithelial Cells Few /hpf (<5) Urine Bacteria Many /hpf (None Seen) H Urine Hyaline Casts Few /lpf (0 - 2) Urine Mucus Few (None Seen) Urine Glucose Normal mg/dL (Normal) Assessment/Plan Assessment/Plan # NSTEMI - Had stress test in 2022, no evidence of ischemia # Thrombocytopenia - Monitor, HOLD DAPT # PVD - US Done # Transaminitis - US Abd - Hep Panel # Hard of Hearing Plan discussed with: Patient My Orders Orders - YUNIER NORTON MD Procedure Category Date Status Time Abdomen Limited US 12/10/24 Resulted 12:35 Communication Order ORDERS 12/10/24 Transmitted 14:11 Hemogram And Platelet LAB 12/12/24 Verified Count 04:00 Date of Service: Dec 11, 2024 Billing Provider: YUNIER NORTON MD Common Visit Codes: [id number] INP/OBS CARE(HIGH) YUNIER NORTON MD Dec 11, 2024 12:35
[2024-12-11] MEDS: HYDROcodone-ACET 5/325MG TAB PO PRN (18:06)
[2024-12-12] VITALS (13 sets, daily range): BP systolic 113–157; BP diastolic 61–74; PULSE 68–86; RESP 13–18; TEMP 97.2–100.5; O2SAT 93–99
--- NOTE | 2024-12-12 05:54 | ECG ---
[facility] Test Date: 2024-12-12 Test Time: 05:53:21 Pat Name: [facility] Department: Respiratoy Room: [facility]1T A Gender: F Senior Software Developer: PAULO : 1940 Requested By: ALONSO ABARCA Order Number: [id number] Reading MD: Jean Valdovinos Measurements Intervals [place] Rate: 86 P: 61 SC: 142 QRS: 3 QRSD: 85 T: 223 QT: 321 QTc: 384 Interpretive Statements Sinus rhythm Probable LVH with secondary repol abnrm Electronically Signed On 12-13-2024 13:23:10 PDT by Jean Valdovinos Please click the below link to view image of tracing.
[2024-12-12 07:14] LABS: Hematocrit 36.7 % (36.0-46.0); Hemoglobin 12.2 g/dL (12.2-16.2); Mean Corpuscular Hemoglobin 30.6 pg (28.0-32.0); Mean Corpuscular Volume 92.6 fL (80.0-100.0); Nucleated Red Blood Cells % 0.1 %
[2024-12-12 07:39] LABS: Anion Gap 12 (5-15); Carbon Dioxide 20 mmol/L (20-31); Chloride 107 mmol/L (98-107); Potassium 3.6 mmol/L (3.5-5.1); Sodium 139 mmol/L (136-145)
[2024-12-12 07:41] LABS: Calcium 8.4 mg/dL (8.7-10.4)
[2024-12-12 07:45] LABS: BUN/Creatinine Ratio 15.8 (10.0-20.0); Blood Urea Nitrogen 18 mg/dL (9-23); Glucose 101 mg/dL (74-106)
[2024-12-12] MEDS: IODIXANOL 320MG/ML 100ML BTL IV ONE (07:45)
[2024-12-12] MEDS: ANGIOMAX 250 MG VIAL IV ONE (08:22)
[2024-12-12] MEDS: VERAPAMIL 2.5MG/ML INJ 2ML VIAL IV ONE (08:22)
[2024-12-12] MEDS: HEPARIN SODIUM (PORCINE) 5000 UNITS/ML 1ML VIAL ONE (08:22)
[2024-12-12] MEDS: SODIUM CHL 0.9% 0 ML ONE (08:23)
[2024-12-12] MEDS: MIDAZOLAM HCL 2MG/2ML 2ml VIAL (1mg/ml) ONE (08:23)
[2024-12-12] MEDS: NITROGLYCERIN 50MG/250ML 250 ML IV ONE (08:23)
[2024-12-12] MEDS: LIDOCAINE 2%HCL (LOCAL ANESTH.) INJ 20ML MDV ONE (08:23)
[2024-12-12] MEDS: fentaNYL CITRATE 100 MCG/2 ML VL ONE (08:24)
--- NOTE | 2024-12-12 09:20 | ECG ---
[facility] Test Date: 2024-12-10 Test Time: 09:48:52 Pat Name: AWILDA BANUELOS Department: [facility] ED Patient ID: [id number] Gender: F Operator Prefinish: GREGG : 1940 Requested By: TIRSO TORO Order Number: [id number] Reading MD: Jean Valdovinos Measurements Intervals [place] Rate: 81 P: 63 AL: 154 QRS: 37 QRSD: 112 T: 226 QT: 377 QTc: 438 Interpretive Statements Sinus rhythm inferior lateral ST segment changes suggest ischemia Electronically Signed On 12-13-2024 14:36:31 PDT by Jean Valdovinos Please click the below link to view image of tracing.
[2024-12-12 11:33] LABS: Hepatitis A Total Antibody Positive (Negative); Hepatitis B Surface Antigen Negative (Negative); Hepatitis C Antibody Negative (Negative)
--- NOTE | 2024-12-12 11:41 | DVHPN2 ---
Progress Note Date Seen: Dec 12, 2024 Medical Necessity Reason Pt with a Central, PICC or Fol: No Subjective Patient reports: Feels better Objective vital signs Vital Sign Date Time Temp Pulse Resp B/P (MAP) Pulse Ox O2 Delivery O2 Flow Rate FiO2 12/12/24 10:55 69 14 139/64 (89) 98 12/12/24 09:59 98.5 98.5 12/11/24 20:00 Room Air* 0 21 Total Intake and Output 12/11/24 12/11/24 12/12/24 15:00 23:00 07:00 Intake Total 460 ml 100 ml 0 ml Balance 460 ml 100 ml 0 ml medications Current Medications Medications Dose Ordered Sig/Ronel Route Start Time Stop Time Status Last Admin Dose Admin Clopidogrel Bisulfate 75 mg DAILY PO 12/10/24 10:00 Hold Ibuprofen 400 mg Q6HP PRN PO 12/10/24 04:45 12/10/24 17:56 400 MG Oxybutynin Chloride 5 mg Q12HR PO 12/10/24 10:00 12/11/24 22:38 5 MG Cholecalciferol 2,000 unit DAILY PO 12/10/24 10:00 12/11/24 10:53 2,000 UNIT Sodium Chloride 1,000 ml @ 60 mls/hr [id number] IV 12/10/24 04:45 12/12/24 06:45 60 MLS/HR Acetaminophen/ Hydrocodone Bitart 1 tab Q4HP PRN PO 12/10/24 04:45 12/11/24 18:06 1 TAB Ondansetron HCl 4 mg Q4HP PRN IV 12/10/24 04:45 Docusate Sodium 100 mg BIDPRN PRN PO 12/10/24 04:45 Nitroglycerin 0.4 mg Q5MINP PRN SL 12/10/24 04:45 Morphine Sulfate 2 mg Q30M PRN IV 12/10/24 04:45 Hydralazine HCl 50 mg Q12HR PO 12/10/24 10:00 12/11/24 22:40 50 MG Examination: GENERAL:Abnormal, HEENT:Abnormal, LUNGS:Abnormal, CVS:Abnormal, ABDOMEN:Abnormal laboratory and microbiology Laboratory Tests 12/12/24 06:50 Test 12/12/24 06:50 Range/Units Serum Glucose 101 74-106 mg/dL Microbiology Date/Time Source Procedure Growth Status 12/10/24 18:26 Blood Blood Culture - Preliminary NO GROWTH AFTER 24 HOURS OF INCUBATION. Resulted Problem List/Assessment/Plan Problem List/Assessment/Plan cad cabg low PLTs htn hl s/p cath patent grafts cont medical therapy avoid dapt given low PLTs for now outpt fu Plan discussed with: Patient My Orders My Orders Orders - TARAH SOSA MD Procedure Category Date Status Time Cl Left Heart Cath CL 12/12/24 Taken 08:29 Communication Order ORDERS 12/12/24 Transmitted 10:35 Post Cath Vital Signs BECKY 12/12/24 In Process Q 15min 10:35 Post Cath Activity BECKY 12/12/24 In Process Protocol 10:35 Cardiac DIET 12/12/24 Transmitted Diet-2gna,Lofat,Lochol Lunch Date of Service: Dec 12, 2024 Billing Provider: TARAH SOSA MD Common Visit Codes: NOT BILLABLE TARAH SOSA MD Dec 12, 2024 11:41
--- NOTE | 2024-12-12 11:47 | DVHOP2 ---
Operative Report Operative Report CARDIAC DRUM WORKER PROCEDURE REPORT [place], [place] Date of Service: 12/12/24 Neurosurgical Nurse Practitioner: Tarah Sosa MD PROCEDURES PERFORMED: Coronary angiogram, left heart catheterization, conscious sedation administration and supervision, less than 15 minutes; fluoroscopy use and interpretation. SVG angiograpm, PADRON angiography, graph angiography PREOPERATIVE DIAGNOSES: ACS POSTOP DIAGNOSIS: ACS DESCRIPTION OF PROCEDURE: The patient or appropriate family signed informed consent understanding the risks, benefits and alternatives of the procedure, the y wished to proceed. The patient was brought to the cardiac pathology laboratory aides teacher in n.p.o. state. The patient was prepped in a sterile fashion. Sedation was used per cardiac cath protocol. I administered 2 mL of 2% lidocaine to the left wrist. With an antegrade front wall puncture. I cannulated the left radial artery and placed a 6-Armen[place] Glidesheath slender. Next, an intra-arterial spasmolytic was administered. Next, a -6F JR4, JL 3.5 and guide and were used for coronary angiogram and graft angio. At the completion of procedure, all guides and wires were removed, and there were no immediate complications. 2500 U of IV heparin given FINDINGS: RCA: Moderate vessel off the right sinus of Valsalva, there is nmid vessel NUTRITION SPECIALIST LEFT MAIN: Moderate size left main, it bifurcates into LAD and circumflex. mild diffuse plaque. CIRCUMFLEX: Moderate caliber vessel coming off the left main with no flow limiting stenosis. mild diffuse plaquing LAD: LAD is a moderate caliber vessel coming of the left main. mid LAD NUTRITION SPECIALIST SVG to rPDA is patent PADRON to LAD is patent CONCLUSIONS: 1. patent 2 vessel bypass PLAN: Aggressive risk factor modification and medical management for the patient. TARAH SOSA MD Dec 12, 2024 11:47
--- NOTE | 2024-12-12 11:58 | DVHPN2 ---
Subjective Patient is seen at bedside, continues to have symptoms. Reviewed: Care Plan Changes from previous H/P or p: No Changes General: Per HPI Eyes: No Pain, No Vision change, No Conjunctivae inflammation, No Eyelid inflammation, No Other, No Redness ENT: No Ear pain, No Ear discharge, No Nose pain, No Nose discharge, No Nose congestion, No Mouth pain, No Mouth swelling, No Throat pain, No Throat swelling, No Other Cardiovascular: No Chest Pain, No Palpitations, No Orthopnea, No Paroxysmal Noc. Dyspnea, No Edema, No Lt Headedness, No Other Respiratory: No Cough, No Dry, No Shortness of breath, No SOB with excertion, No Wheezing, No Hemoptysis, No Pleuritic Pain, No Sputum, No Other Gastrointestinal: No Nausea, No Vomiting, No Abdominal Pain, No Diarrhea, No Constipation, No Melena, No Hematochezia, No Other Genitourinary: No Dysuria, No Frequency, No Incontinence, No Hematuria, No Retention, No Other Musculoskeletal: No other, No neck pain, No shoulder pain, No arm pain, No back pain, No hand pain, No leg pain, No foot pain Skin: No Rash, No Lesions, No Jaundice, No Bruising, No Other Objective Vitals Vital Signs Date Time Temp Pulse Resp B/P (MAP) Pulse Ox O2 Delivery O2 Flow Rate FiO2 12/12/24 10:55 69 14 139/64 (89) 98 12/12/24 09:59 98.5 98.5 12/11/24 20:00 Room Air* 0 21 Intake/Output Intake and Output 12/12/24 07:00 Intake Total 560 ml Balance 560 ml Intake Oral 560 ml # Voids 3 # Bowel Movements 1 Exam GEN: Healthy appearing, well-developed, NAD. HEENT: NC/AT; MMM. CV: RRR, no m/r/g. LUNGS: CTAB, no w/r/c. ABD: Soft, NT/ND, NBS, no masses or organomegaly. EXT: skin Warm, well perfused. no rashes. No clubbing, cyanosis, or edema. NEURO: Ambulating with no limitations. No focal deficits. Hints exam negative, he has strength 3 to 4/5 lower extremity bilaterally General Appearance: Alert, Oriented X3, Cooperative Lungs: Clear to auscultation Cardiovascular: Regular rate, Normal S1, Normal S2 Abdomen: Normal bowel sounds, Soft Psych/Mental Status: Mental status NL Medications Current Medications Medications Dose Ordered Sig/Ronel Route Start Time Stop Time Status Last Admin Dose Admin Clopidogrel Bisulfate 75 mg DAILY PO 12/10/24 10:00 Hold Ibuprofen 400 mg Q6HP PRN PO 12/10/24 04:45 12/10/24 17:56 400 MG Oxybutynin Chloride 5 mg Q12HR PO 12/10/24 10:00 12/11/24 22:38 5 MG Cholecalciferol 2,000 unit DAILY PO 12/10/24 10:00 12/11/24 10:53 2,000 UNIT Sodium Chloride 1,000 ml @ 60 mls/hr [id number] IV 12/10/24 04:45 12/12/24 06:45 60 MLS/HR Acetaminophen/ Hydrocodone Bitart 1 tab Q4HP PRN PO 12/10/24 04:45 12/11/24 18:06 1 TAB Ondansetron HCl 4 mg Q4HP PRN IV 12/10/24 04:45 Docusate Sodium 100 mg BIDPRN PRN PO 12/10/24 04:45 Nitroglycerin 0.4 mg Q5MINP PRN SL 12/10/24 04:45 Morphine Sulfate 2 mg Q30M PRN IV 12/10/24 04:45 Hydralazine HCl 50 mg Q12HR PO 12/10/24 10:00 12/11/24 22:40 50 MG Laboratory Results Laboratory Tests 12/12/24 06:50 Chemistry Test 12/12/24 06:50 Calcium Level 8.4 mg/dL (8.7-10.4) L Urinalysis Test 12/10/24 07:00 Urine Color Yellow (Yellow) Urine Clarity Turbid (Clear) H Urine pH 5.5 (5.0-9.0) Urine Specific [place] 1.018 (1.001-1.035) Urine Protein 1+ (Negative) H Urine Ketones Negative (Negative) Urine Blood Negative /uL (Negative) Urine Nitrite Negative (Negative) Urine Bilirubin Negative (Negative) Urine Urobilinogen Normal mg/dL (Negative) Urine Leukocyte Esterase 2+ /uL (Negative) Urine RBC 1 /hpf (0 - 4) Urine Microscopic WBC 18 /HPF (0-5) H Urine Squamous Epithelial Cells Few /hpf (<5) Urine Bacteria Many /hpf (None Seen) H Urine Hyaline Casts Few /lpf (0 - 2) Urine Mucus Few (None Seen) Urine Glucose Normal mg/dL (Normal) Microbiology Microbiology Date/Time Source Procedure Growth Status 12/10/24 18:26 Blood Blood Culture - Preliminary NO GROWTH AFTER 24 HOURS OF INCUBATION. Resulted Labs and/or images reviewed: Labs reviewed by me, Image(s) reviewed by me Assessment/Plan Assessment/Plan 12/12: Patient had a left heart catheterization today with 2 vessel bypass patent, cardiology recommend massive risk factor modification to continue, continue home meds. Upon entry with patient at visit patient says her chief complaint was generalized weakness and no chest pain. Patient remains weak. Patient motor strength lower extremity 3-4 out of 5. We will get PT eval,. Diet, add ensure replacement to improve nutrition. Labs appear alcohol pattern, low platelets further supporting cirrhosis (alcohol versus DUNN) . Given extent of weakness we will do PT eval, patient may need rehab. # NSTEMI - Had stress test in 2022, no evidence of ischemia ESTRELLITA due to VMN -Creatinine elevated 1.48 on admit, comes down to 1.14 # Thrombocytopenia - Monitor, HOLD DAPT # PVD - US Done # Transaminitis - US Abd - Hep Panel # Hard of Hearing Tele Full code Plan discussed with: Patient Date of Service: Dec 12, 2024 Billing Provider: YAEL MENDOZA MD Common Visit Codes: [id number] INP/OBS CARE(HIGH) YAEL MENDOZA MD Dec 12, 2024 11:58
[2024-12-12] MEDS: Ensure HIGH Protein Chocolate 8oz Bottle PO SCH (18:19)
[2024-12-12] MEDS: THIAMINE 100mg/ml INJ (200mg/2ml VIAL) IV ONE (18:28)
[2024-12-12] MEDS: MULTIPLE VITAMIN TAB PO SCH (18:28)
[2024-12-12] MEDS: FOLIC ACID 1 MG TAB PO SCH (18:28)
[2024-12-13] VITALS (7 sets, daily range): BP systolic 98–117; BP diastolic 50–63; PULSE 73–88; RESP 16–19; TEMP 97.4–98.7; O2SAT 9–94
[2024-12-13 07:04] LABS: Hematocrit 31.4 % (36.0-46.0); Hemoglobin 10.7 g/dL (12.2-16.2); Mean Corpuscular Hemoglobin 31.1 pg (28.0-32.0); Mean Corpuscular Volume 91.3 fL (80.0-100.0); Nucleated Red Blood Cells % 0.3 %
[2024-12-13 07:13] LABS: Alanine Aminotransferase 31 U/L (7-40); Alkaline Phosphatase 54 U/L (46-116); Anion Gap 9 (5-15); BUN/Creatinine Ratio 21.4 (10.0-20.0); Blood Urea Nitrogen 22 mg/dL (9-23); Carbon Dioxide 21 mmol/L (20-31); Glucose 92 mg/dL (74-106); Sodium 139 mmol/L (136-145)
[2024-12-13 07:24] LABS: Albumin 3.1 g/dL (3.2-4.8); Bilirubin, Total 0.2 mg/dL (0.2-1.0); Calcium 8.3 mg/dL (8.7-10.4); Chloride 109 mmol/L (98-107); Potassium 3.1 mmol/L (3.5-5.1); Total Protein 5.0 g/dL (5.7-8.2)
[2024-12-13] MEDS: THIAMINE 100mg/ml INJ (200mg/2ml VIAL) IV SCH (10:18)
--- NOTE | 2024-12-13 11:24 | DVHDS2 ---
Discharge Summary Date of Admission Dec 10, 2024 at 04:34 Date of Discharge: Dec 13, 2024 Labs/Diagnostic Data: Laboratory Results Test 12/13/24 06:35 12/11/24 09:38 12/10/24 17:38 12/10/24 13:02 White Blood Count 8.0 10^3/uL (4.4-10.8) Red Blood Count 3.44 10^6/uL (4.0-5.20) Hemoglobin 10.7 g/dL (12.2-16.2) Hematocrit 31.4 % (36.0-46.0) Mean Corpuscular Volume 91.3 fL (80.0-100.0) Mean Corpuscular Hemoglobin 31.1 pg (28.0-32.0) Mean Corpuscular Hemoglobin Concent 34.0 g/dL (32.0-36.0) Red Cell Distribution Width 13.8 % (11.8-14.3) Platelet Count 66 10^3/uL (140-450) Mean Platelet Volume 9.8 fL (6.9-10.8) Neutrophils (%) (Auto) 82.5 % (37.0-80.0) Lymphocytes (%) (Auto) 7.0 % (10.0-50.0) Monocytes (%) (Auto) 4.8 % (0.0-12.0) Eosinophils (%) (Auto) 5.4 % (0.0-7.0) Basophils (%) (Auto) 0.3 % (0.0-2.0) Neutrophils # (Auto) 6.6 10 ^3/uL (1.6-8.6) Lymphocytes # (Auto) 0.6 10 ^3/uL (0.4-5.4) Monocytes # (Auto) 0.4 10 ^3/uL (0-1.3) Eosinophils # (Auto) 0.4 10 ^3/uL (0-0.8) Basophils # (Auto) 0 10 ^3/uL (0-0.2) Nucleated Red Blood Cells 0.3 % Sodium Level 139 mmol/L (136-145) Potassium Level 3.1 mmol/L (3.5-5.1) Chloride Level 109 mmol/L (98-107) Carbon Dioxide Level 21 mmol/L (20-31) Anion Gap 9 (5-15) Blood Urea Nitrogen 22 mg/dL (9-23) Creatinine 1.03 mg/dL (0.550-1.02) Glomerular Filtration Rate Calc 54 mL/min (>90) BUN/Creatinine Ratio 21.4 (10.0-20.0) Serum Glucose 92 mg/dL (74-106) Calcium Level 8.3 mg/dL (8.7-10.4) Total Bilirubin 0.2 mg/dL (0.2-1.0) Aspartate Amino Transferase (AST) 27 U/L (13-40) Alanine Aminotransferase (ALT) 31 U/L (7-40) Alkaline Phosphatase 54 U/L (46-116) Total Protein 5.0 g/dL (5.7-8.2) Albumin 3.1 g/dL (3.2-4.8) Vitamin B12 Level 367 pg/mL (211-911) Thyroid Stimulating Hormone (TSH) 1.96 uIU/mL (0.55-4.78) Prothrombin Time 10.5 sec (9.3-11.8) Prothrombin Time INR 0.99 (0.9-1.15) POC Glucose 99 mg/dl (70-106) Ammonia < 10 umol/L (11-32) Hepatitis A IgM Antibody Negative Hepatitis A Antibody Total Positive (Negative) Hepatitis B Surface Antigen Negative (Negative) Hepatitis B Surface Antibody Negative (Negative) Hepatitis B Core Total Antibody Negative (Negative) Hepatitis B Core IgM Antibody Negative (Negative) Hepatitis C Antibody Negative (Negative) Test 12/10/24 07:00 12/10/24 03:03 12/09/24 23:30 Urine Color Yellow (Yellow) Urine Clarity Turbid (Clear) Urine pH 5.5 (5.0-9.0) Urine Specific [place] 1.018 (1.001-1.035) Urine Protein 1+ (Negative) Urine Ketones Negative (Negative) Urine Blood Negative /uL (Negative) Urine Nitrite Negative (Negative) Urine Bilirubin Negative (Negative) Urine Urobilinogen Normal mg/dL (Negative) Urine Leukocyte Esterase 2+ /uL (Negative) Urine RBC 1 /hpf (0 - 4) Urine Microscopic WBC 18 /HPF (0-5) Urine Squamous Epithelial Cells Few /hpf (<5) Urine Bacteria Many /hpf (None Seen) Urine Hyaline Casts Few /lpf (0 - 2) Urine Mucus Few (None Seen) Urine Glucose Normal mg/dL (Normal) Troponin I High Sensitivity 174 ng/L (</=34) Lactic Acid Level 1.6 mmol/L (0.4-2.0) Magnesium Level 2.0 mg/dL (1.6-2.6) Creatine Kinase 358 U/L (34-145) Other Laboratory Tests 12/13/24 06:35 Brief Hx & Hospital Course: 84-year-old female heart of hearing with past medical history of hypertension and diabetes mellitus who presented to [facility] ED for evaluation of generalized weakness. Patient's sister reports that she had mechanical fall slipped off the bed without any head or neck injury or loss of consciousness, and has been weak since then.Patient is typically ambulatory but has not been walking as much due to weakness. 12/12: Patient had a left heart catheterization today with 2 vessel bypass patent, cardiology recommend massive risk factor modification to continue, continue home meds. Upon entry with patient at visit patient says her chief complaint was generalized weakness and no chest pain. Patient remains weak. Patient motor strength lower extremity 3-4 out of 5. We will get PT eval,. Diet, add ensure replacement to improve nutrition. Labs appear alcohol pattern, low platelets further supporting cirrhosis (alcohol versus DUNN) . Given extent of weakness we will do PT eval, patient may need rehab. 12/13: Patient is feeling better, more stable. PT working with the patient recommending front wheel walker, home PT, home safety eval all of which is being ordered through social consult today. TSH is within normal limits, creatinine improving and LFTs improving with slow IV fluids. Patient has history of alcohol abuse which could explain the low platelets and alcohol pattern of LFTs, but with in proving of transaminitis with fluids there was some intravascular volume depletion and possible early liver shock. Patient is to stay hydrated, continue home medications, take daily B1, weekly B12, weekly folate supplement, daily +65 multivitamin, continue ambulation with front wheel walker and home health with home PT. Follow up with Cardiology and PCP to review angiogram and to review discharge. Stable for discharge today. diagnosis: NSTEMI, type 1 ruled out dizziness due to hypotension Chronic hypotension due to cirrhosis Cirrhosis likely due to history of alcohol abuse thrombocytopenia, due to alcohol history History of tobacco abuse Peripheral vascular disease Transaminitis Hearing loss Discharge plan: front wheel walker, home PT, home safety eval . stay hydrated, continue home medications ( Stop amlodipine, hydralazine, lisinopril). take daily B1, B12 every other day, daily folate supplement, daily +65 multivitamin, continue ambulation with front wheel walker and home health with home PT. Follow up with Cardiology and PCP to review angiogram and to review discharge. Condition at Discharge: Fair Final Diagnosis/Problems List NSTEMI, type 1 ruled out dizziness due to hypotension Chronic hypotension due to cirrhosis Cirrhosis likely due to history of alcohol abuse thrombocytopenia, due to alcohol history History of tobacco abuse Peripheral vascular disease Transaminitis Hearing loss Discharge Disposition: Home Discharge Instruct/Medications Scheduled Aspirin (Aspir-Low), 81 MG PO DAILY, (Reported) Cholecalciferol (Vitamin D3), 1 TAB PO DAILY, (Reported) Cholecalciferol (Vitamin D-3 Super Strengt), 1 TAB PO DAILY, (Reported) Clopidogrel Bisulfate (Clopidogrel), 1 TAB PO DAILY, (Reported) Cyanocobalamin (B12), 1,000 MCG PO EOD Folic Acid (Folic Acid), 1 MG PO DAILY Magnesium Oxide (Magnesium), 250 MG PO DAILY, (Reported) Oxybutynin Chloride (Oxybutynin Chloride), 5 MG PO BID, (Reported) Simvastatin (Simvastatin), 1 TAB PO HS, (Reported) Thiamine Hcl (Vitamin B-1), 100 MG PO DAILY Scheduled PRN Meclizine Hcl (Meclizine Hcl), 1 TAB PO DAILY PRN for DIZZINESS, (Reported) Discontinued Medications Amlodipine Besylate (Amlodipine Besylate), 1 TAB PO DAILY, (Reported) Hydralazine Hcl (Hydralazine Hcl), 1 TAB PO TID, (Reported) Lisinopril (Lisinopril), 1 TAB PO BID, (Reported) Discharge Statement: "Patient was advised to return to the ER or call 911 if any headaches, dizziness, shortness of breath, chest pain, abdominal pain, bleeding, fevers, or worsening of medical condition. Patient was counseled about treatment plan, medications, possible side effects, patientverbalized understanding. All questions were answered to the best of my ability. This discharge took greater then 30 minutes in planning, reviewing documentation, counseling the patient, and discussing with other team members." ASSESSMENT ASSESSMENT Assessment Date of Service: Dec 13, 2024 Billing Provider: YAEL MENDOZA MD Common Visit Codes: 89303-TRL/OBS DISCH DAY >30min YAEL MENDOZA MD Dec 13, 2024 11:24
[2024-12-13] MEDS ORDERED: CYAN-17 PO (15:58)
[2024-12-13] MEDS ORDERED: THIA100T10 PO (15:58)
[2024-12-13] MEDS ORDERED: FOLI-119 PO (15:58)
== END 2024-12-13 18:44 | disposition home health service (06) | DRG 286 ==
LOC: ER 22:45 → OVERFLOW 12-10 04:34 → TELE-EAST 12-10 13:19
PROVIDERS: ADMIT Student in an Organized Health Care Education/Training Program; ATTEND Student in an Organized Health Care Education/Training Program
PROC: 4A023N7 Measurement of Cardiac Sampling and Pressure, Left Heart, Percutaneous Approach (ICD-10-PCS; principal; 2024-12-12)
PROC: B211YZZ Fluoroscopy of Multiple Coronary Arteries using Other Contrast (ICD-10-PCS; 2024-12-12)
PROC: B215YZZ Fluoroscopy of Left Heart using Other Contrast (ICD-10-PCS; 2024-12-12)
DX: I95.89 Other hypotension (principal); N17.0 Acute kidney failure with tubular necrosis; N39.0 Urinary tract infection, site not specified; I25.10 Atherosclerotic heart disease of native coronary artery without angina pectoris; E11.51 Type 2 diabetes mellitus with diabetic peripheral angiopathy without gangrene; D69.6 Thrombocytopenia, unspecified; E11.22 Type 2 diabetes mellitus with diabetic chronic kidney disease; E78.5 Hyperlipidemia, unspecified; E87.6 Hypokalemia; N18.9 Chronic kidney disease, unspecified; I12.9 Hypertensive chronic kidney disease with stage 1 through stage 4 chronic kidney disease, or unspecified chronic kidney disease; K74.60 Unspecified cirrhosis of liver; Z79.82 Long term (current) use of aspirin; Z79.899 Other long term (current) drug therapy; Z95.1 Presence of aortocoronary bypass graft
CPT/HCPCS: 36415; 70450; 71045; 76705; 80048; 80053; 80074; 81001; 82140; 82550; 82607; 82962; 83605; 83735; 84443; 84484; 85025; 85610; 86704; 86706; 86708; 86803; 87040; 87340; 93005; 93306; 93459; 93925; 96360; 97110; 97116; 97163; 99152; G0378; J2250; Q9967

== ENCOUNTER 2025-01-10 13:51 | Outpatient (CLI) | payer OTHER ==
[~2025-01-10 13:51] MED LIST changes: -AMLO1TAB23 PO; +CYAN-17 PO; +FOLI-119 PO; -HYDR50TA47 PO; -LISI10TA34 PO; +THIA100T10 PO
[2025-01-10 14:31] LABS: Alanine Aminotransferase 22 U/L (7-40); Albumin 4.1 g/dL (3.2-4.8); Alkaline Phosphatase 76 U/L (46-116); Anion Gap 10 (5-15); BUN/Creatinine Ratio 9.3 (10.0-20.0); Blood Urea Nitrogen 11 mg/dL (9-23); Calcium 9.4 mg/dL (8.7-10.4); Carbon Dioxide 26 mmol/L (20-31); Chloride 103 mmol/L (98-107); Glucose 102 mg/dL (74-106); Magnesium 2.3 mg/dL (1.6-2.6); Potassium 3.9 mmol/L (3.5-5.1); Sodium 139 mmol/L (136-145); Total Protein 7.7 g/dL (5.7-8.2); Uric Acid 6.4 mg/dL (3.1-7.8)
[2025-01-10 14:32] LABS: Bilirubin, Total 0.3 mg/dL (0.2-1.0)
[2025-01-10 14:34] LABS: Hematocrit 36.0 % (36.0-46.0); Hemoglobin 11.8 g/dL (12.2-16.2); Mean Corpuscular Hemoglobin 30.2 pg (28.0-32.0); Mean Corpuscular Volume 91.9 fL (80.0-100.0); Nucleated Red Blood Cells % 0.1 %
== END 2025-01-10 17:00 | disposition home or self-care (01) ==
LOC: LAB 13:51
PROVIDERS: ATTEND Internal Medicine Nephrology
DX: I12.9 Hypertensive chronic kidney disease with stage 1 through stage 4 chronic kidney disease, or unspecified chronic kidney disease (principal); E11.22 Type 2 diabetes mellitus with diabetic chronic kidney disease; N18.32 Chronic kidney disease, stage 3b; R80.9 Proteinuria, unspecified; D69.6 Thrombocytopenia, unspecified; E11.21 Type 2 diabetes mellitus with diabetic nephropathy; E21.3 Hyperparathyroidism, unspecified; E55.9 Vitamin D deficiency, unspecified; N39.0 Urinary tract infection, site not specified; D63.1 Anemia in chronic kidney disease; M10.9 Gout, unspecified
CPT/HCPCS: 36415; 80053; 82306; 83735; 83970; 84550; 85025